=== PATIENT | female | born 1940 | race Caucasian/White ===

== ENCOUNTER → 2016-07-10 | Outpatient (CLI) | payer MEDICARE, OTHER ==
--- NOTE | 2016-07-10 16:52 | US ---
EXAMINATION TYPE: US venous doppler duplex LE BI DATE OF EXAM: 07/10/2016 3:33 PM COMPARISON: NONE CLINICAL HISTORY: R60 Localized Edema. SIDE PERFORMED: Bilateral TECHNIQUE: The lower extremity deep venous system is examined utilizing real time linear array sonog dinah with graded compression, doppler sonography and color-flow sonography. VESSELS IMAGED: External Iliac Vein (EIV) Common Femoral Vein Deep Femoral Vein Greater Saphenous Vein * Femoral Vein Popliteal Vein Proximal Calf Veins (* superficial vessels) small complex fluid collection left pop fossa measuring 4.2 x 1.3 x 1.7. Right Leg: Negative for DVT Left Leg: Negative for DVT IMPRESSION: 1. Bilateral lower extremity negative for deep venous thrombosis. 2. Left popliteal cyst
== END | disposition home or self-care (01) ==
LOC: RADUSWWP 15:01
PROVIDERS: ATTEND Family Medicine
DX: M71.22 Synovial cyst of popliteal space [Baker], left knee (principal); Z88.0 Allergy status to penicillin; Z88.1 Allergy status to other antibiotic agents; Z88.8 Allergy status to other drugs, medicaments and biological substances
CPT/HCPCS: 93970

== ENCOUNTER → 2017-03-14 | Outpatient (CLI) | payer MEDICARE, OTHER ==
--- NOTE | 2017-03-19 10:43 | MM ---
Reason for exam: screening (asymptomatic). Last mammogram was performed 2 years and 2 months ago. History: Patient is postmenopausal. Family history of breast cancer at age 35. Physical Findings: A clinical breast exam by your physician is recommended on an annual basis and results should be correlated with mammographic findings. MG 3D Screening Mammo W/Cad Bilateral CC and MLO view(s) were taken. Prior study comparison: January 03, 2015, mammogram, performed at [facility]. May 27, 2011, mammogram, performed at [facility]. There are scattered fibroglandular densities. There are stable left lower inner quadrant calcifications back to 2014. No suspicious abnormality. No significant changes when compared with prior studies. ASSESSMENT: Benign, BI-RAD 2 RECOMMENDATION: Routine screening mammogram of both breasts in 1 year.
== END | disposition home or self-care (01) ==
LOC: RADMAMWWP 13:40
PROVIDERS: ATTEND Family Medicine
DX: Z12.31 Encounter for screening mammogram for malignant neoplasm of breast (principal); Z78.0 Asymptomatic menopausal state
CPT/HCPCS: 77063; 77067

== ENCOUNTER → 2017-08-14 | Outpatient (CLI) | payer MEDICARE, OTHER ==
--- NOTE | 2017-08-16 10:05 | MR ---
MR kidney with and without contrast HISTORY: Renal mass Correlation to CT chest report 06/26/2017 Multiplanar multisequence imaging obtained through the kidneys Findings: The right kidney shows a T2 hyperintense focus measuring 16 mm at the lower pole, upper sneha e T2 hyperintense focus measuring approximately 4 mm. Lower pole left kidney also shows T2 hyperinten se focus measuring 4 mm. Upper pole focus in the left kidney measures only approximately 7 mm in size and is T2 low intensity, T1 hyperintense. Punctate focus of low signal centrally shows increased signal following contrast ad ministration. No evident washout on delayed imaging postcontrast administration. There is no signific ant additional enhancement following contrast administration. Size of the lesion may limit evaluation . Additional subcentimeter cortical cysts are present within the left kidney which are T2 hyperintens e. Liver shows signal drop on out of phase imaging suggestive of hepatic steatosis. Adrenal glands are n ormal. Spleen is a marked pancreas is normal. Lung bases are clear. Aorta shows normal caliber. Possi ble small hiatal hernia. Degenerative disc changes are present in the visualized spine. IMPRESSION: There are cortical cysts bilaterally within the kidneys, and upper pole cyst may represen t proteinaceous cyst, although there is a questionable punctate focus of enhancement centrally, follo w-up could be performed to assess for stability. Hepatic steatosis.
== END | disposition home or self-care (01) ==
LOC: RADMRIMAIN 14:04
PROVIDERS: ATTEND Family Medicine
DX: N28.1 Cyst of kidney, acquired (principal); K76.0 Fatty (change of) liver, not elsewhere classified
CPT/HCPCS: 82565; 84520; 74183; 36415; A9581

== ENCOUNTER → 2017-12-15 | Outpatient (CLI) | payer MEDICARE, OTHER ==
--- NOTE | 2017-12-16 20:39 | BD ---
EXAMINATION TYPE: Axial Bone Density DATE OF EXAM: 12/15/2017 COMPARISON: NONE CLINICAL HISTORY: 77 YR OLD FEMALE.....ICD-10 CODE: Z78.0 MENOPAUSAL STATE Height: 58.8 Weight: 202 FRAX RISK QUESTIONS: Glucocorticoids (More than 3mos): YES (Ex: prednisone, prednisolone, methylprednisolone, dexamethasone, and hydrocortisone). RISK FACTORS HISTORY OF: Postmenopausal woman: YES, AT 48 YRS OLD Take estrogen and/or progesterone medications: YES, HRT FOR ABOUT 7 YRS Lost more than 2 inches in height since high school: YES MEDICATIONS: Prednisone or other steroids: LUNG INHALERS X3 COPD, FOR ABOUT 8 YRS Thyroid Medications: YES, ARMOR THYROID FOR ABOUT 15 YRS Additional Medications: BP MEDS, PROTONIX, STATINS FOR CHOLESTEROL, VIT D Additional History: COPD, HYPERTENSION EXAM MEASUREMENTS: Bone mineral densitometry was performed using the [employer] System. Bone mineral density as measured about the Lumbar spine is: ----- L1-L4(G/cm2): 1.299 T Score Values are as follows: ----- L1: 1.1 ----- L2: 0.8 ----- L3: 0.9 ----- L4: 1.1 ----- L1-L4: 1.0 Bone mineral density FIRST BONE DENSITY AT [facility] Bone mineral density about the R hip (g/cm2): 0.919 Bone mineral density about the L hip (g/cm2): 0.930 T Score values are as follows: -----R Neck: -1.7 -----L Neck: -1.7 -----R Total: -0.7 -----L Total: -0.6 Bone mineral density FIRST AT [facility] FRAX%s: THERE IS A 18.6% CHANCE FOR A MAJOR OSTEOPOROTIC FX AND A 5.1% FOR HIP FX....PROBABILITY OF FX IN 10 YRS TIME IMPRESSION: Osteopenia (T Score between -2.5 and -1). There is slightly increased risk of fracture and the patient may be considered for treatment. Re-Screen 2-5 years. NOTE: T-SCORE=SD OF THE YOUNG ADULT MEAN.
== END | disposition home or self-care (01) ==
LOC: RADBDWWP 15:25
PROVIDERS: ATTEND Family Medicine
DX: M85.80 Other specified disorders of bone density and structure, unspecified site (principal); Z78.0 Asymptomatic menopausal state
CPT/HCPCS: 77080

== ENCOUNTER 2017-12-28 05:38 | Inpatient (IN) | payer MEDICARE, OTHER ==
[2017-12-28] MEDS ORDERED: SODIUM CHLORIDE 0.9% 500 ML 500 ML IV STA (05:44)
[2017-12-28] MEDS ORDERED: DILTIAZEM DRIP BOLUS FROM BAG 1 MG SOLN IV ONE (05:45)
[2017-12-28] MEDS ORDERED: DILTIAZEM 50 MG in SODIUM CHLORIDE 0.9% 40 ML IV SCH (05:45)
--- NOTE | 2017-12-28 05:53 | ED ---
Arrhythmia/Palpitations HPI - General Chief Complaint: Arrhythmia/Palpitations Stated Complaint: A Fib Time Seen by Provider: 12/28/17 05:44 Source: patient Mode of arrival: wheelchair Limitations: no limitations - History of Present Illness Initial Comments: Yamila is a 77-year-old female with a history of A. fib for which she takes by mouth Lopressor and is on L Diamante. She presents the emergency department today for evaluation of palpitations. Patient reports that she woke between 2 and 3 AM felt that her heart was racing. She checked her pulse at home and noted that it was in the 160s to 170s. At that point she decided to come to the ER for further evaluation. Patient reports that she feels her heart is racing and some tightness in her chest as well as some mild shortness of breath. She denies any chest pain. She denies any recent change in medications. She reports she's been compliant with all of her medications. She's had no recent change in the dose of her thyroid medication. 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 - Related Data Home Medications Medication Instructions Recorded Confirmed Glucosamine-Chondr 500-400Mg 3 tab PO DAILY 07/08/13 01/25/17 Pantoprazole Sodium [Protonix] 40 mg PO BID 07/08/13 01/25/17 Tiotropium Kindred [Spiriva] 1 cap INHALATION RT-DAILY 07/08/13 01/25/17 Budesonide/Formoterol Fumarate 2 puff INHALATION RT-BID 01/03/15 01/25/17 [Symbicort 80-4.5 Mcg Inhaler] Selenium 200 mcg PO DAILY 01/03/15 01/25/17 Thyroid,Pork [Nature-Throid] 65 mg PO QAM 01/03/15 01/25/17 Ascorbic Acid [Vitamin C] 1,000 mg PO DAILY 01/25/17 01/25/17 Beclomethasone Dipropionate [Qvar 2 puff INHALATION RT-BID 01/25/17 01/25/17 40 mcg] Cetirizine HCl [Zyrtec] 10 mg PO HS 01/25/17 01/25/17 Chromium 250mcg 250 mcg PO DAILY 01/25/17 01/25/17 Cinnamon Bark [Cinnamon] 500 mg PO DAILY 01/25/17 01/25/17 Cyanocobalamin (Vitamin B-12) 5,000 mcg PO DAILY 01/25/17 01/25/17 [Vitamin B-12] Fenofibrate Nanocrystallized 145 mg PO HS 01/25/17 01/25/17 [Tricor] Levalbuterol Tartrate [Xopenex Hfa 1 puff INHALATION RT-Q6H PRN 01/25/17 Inhaler] Losartan [Cozaar] 50 mg PO QAM 01/25/17 01/25/17 Pro [place] + D Extra 2,800 mg PO BID 01/25/17 01/25/17 Ubidecarenone [Co Q-10] 100 mg PO DAILY 01/25/17 01/25/17 guaiFENesin [Mucinex] 600 mg PO QAM 01/25/17 01/25/17 Previous Rx's Medication Instructions Recorded Apixaban [Eliquis] 5 mg PO BID #60 tab 01/27/17 Furosemide [Lasix] 20 mg PO DAILY #30 tab 01/27/17 Metoprolol Succinate (ER) [Toprol 25 mg PO DAILY #30 tab.er.24h 01/27/17 XL] Potassium Chloride ER [K-Dur 10] 10 meq PO DAILY #30 tab.er.prt 01/27/17 Allergies Allergy/AdvReac Type Severity Reaction Status Date / Time latex Allergy Unknown Verified 12/28/17 05:44 Penicillins AdvReac Unknown Verified 12/28/17 05:44 Review of Systems ROS Statement: Those systems with pertinent positive or pertinent negative responses have been documented in the HPI. ROS Other: All systems not noted in ROS Statement are negative. Past Medical History Past Medical History: Atrial Fibrillation, Asthma, GERD/Reflux, Hyperlipidemia, Hypertension, Thyroid Disorder Additional Past Medical History / Comment(s): STATES SEASONAL ALLERGIES, History of Any Multi-Drug Resistant Organisms: None Reported Past Surgical History: Heart Catheterization, Tubal Ligation Additional Past Surgical History / Comment(s): OMAR CATARACTS, ABD SX TO REMOVE TUMOR FROM UTERUS Past Anesthesia/Blood Transfusion Reactions: Postoperative Nausea & Vomiting ( PONV) Past Psychological History: No Psychological Hx Reported Smoking Status: Former smoker Past Alcohol Use History: None Reported Past Drug Use History: None Reported - Past Family History Mother Family Medical History: Renal Disease Father Family Medical History: No Reported History Additional Family Medical History / Comment(s): of "old age", in his 80's. No known history General Exam - General Exam Comments Initial Comments: Physical Exam GENERAL: Patient is well-developed and well-nourished. Patient is nontoxic and well- hydrated and is in no distress. HENT: Normocephalic, Atraumatic. EYES: PERRL, EOMI PULMONARY: Unlabored respirations. No audible rales rhonchi or wheezing was noted. CARDIOVASCULAR: Tachycardic, irregularly irregular, warm and well perfused extremities, palpable radial pulses bilaterally ABDOMEN: Soft and nontender with normal bowel sounds. SKIN: Skin is clear with no lesions or rashes and otherwise unremarkable. : Deferred NEUROLOGIC: Patient is alert and oriented x3. Moving all extremities spontaneously MUSCULOSKELETAL: Normal extremities with adequate strength and full range of motion. No lower extremity swelling or edema. No calf tenderness. PSYCHIATRIC: Normal psychiatric evaluation. Limitations: no limitations Limitations: no limitations Course Vital Signs 12/28/17 12/28/17 05:41 06:09 Temperature 97.8 F Pulse Rate 158 H Pulse Rate [ 144 H Client Support Administrator ] Respiratory 18 Rate Blood Pressure 145/114 O2 Sat by Pulse 96 Oximetry EKG Findings - EKG Comments: EKG Findings:: EKG obtained at 5:53 AM, rate is 141, narrow complex tachycardia consistent with A. fib with RVR. There is left axis deviation and a left bundle -branch block. Medical Decision Making - Medical Decision Making The patient was seen and evaluated, history was obtained from the patient and review of medical record for cardiac workup and treatment for A. fib with RVR were ordered immediately Labs and imaging were ordered EKG does confirm A. fib with RVR Labs were reviewed, troponin is not elevated, no significant abnormalities that require intervention at this time Patient's HR improved with IV Cardizem Patient care discussed with Dr. Hill who accepts admission with consult to cardiology. Patient agreeable to plan for admission. - Lab Data Result diagrams: 12/28/17 05:55 12/28/17 05:55 Lab Results 12/28/17 12/28/17 12/28/17 Range/Units 05:55 05:55 05:55 WBC 7.6 (3.8-10.6) k/uL RBC 4.80 (3.80-5.40) m/uL Hgb 14.7 (11.4-16.0) gm/dL Hct 44.5 (34.0-46.0) % MCV 92.6 (80.0-100.0) fL MCH 30.7 (25.0-35.0) pg MCHC 33.1 (31.0-37.0) g/dL RDW 13.1 (11.5-15.5) % Plt Count 227 (150-450) k/uL Neutrophils % 54 % Lymphocytes % 33 % Monocytes % 8 % Eosinophils % 3 % Basophils % 1 % Neutrophils # 4.1 (1.3-7.7) k/uL Lymphocytes # 2.5 (1.0-4.8) k/uL Monocytes # 0.6 (0-1.0) k/uL Eosinophils # 0.2 (0-0.7) k/uL Basophils # 0.1 (0-0.2) k/uL Sodium 140 (137-145) mmol/L Potassium 4.1 (3.5-5.1) mmol/L Chloride 108 H (98-107) mmol/L Carbon Dioxide 23 (22-30) mmol/L Anion Gap 9 mmol/L BUN 24 H (7-17) mg/dL Creatinine 0.91 (0.52-1.04) mg/dL Est GFR (CKD-EPI)AfAm 69 (>60 ml/min/1.73 sqM) Est GFR (CKD-EPI)NonAf 60 (>60 ml/min/1.73 sqM) Glucose 119 H (74-99) mg/dL Calcium 10.3 H (8.4-10.2) mg/dL Magnesium 2.0 (1.6-2.3) mg/dL Total Bilirubin 0.7 (0.2-1.3) mg/dL AST 38 H (14-36) U/L ALT 48 (9-52) U/L Alkaline Phosphatase 47 (38-126) U/L Total Creatine Kinase 122 (30-135) U/L CK-MB (CK-2) 2.5 H (0.0-2.4) ng/mL CK-MB (CK-2) Rel Index 2.0 Troponin I 0.015 (0.000-0.034) ng/mL NT-Pro-B Natriuret Pep pg/mL Total Protein 7.8 (6.3-8.2) g/dL Albumin 4.5 (3.5-5.0) g/dL 12/28/17 Range/Units 05:55 WBC (3.8-10.6) k/uL RBC (3.80-5.40) m/uL Hgb (11.4-16.0) gm/dL Hct (34.0-46.0) % MCV (80.0-100.0) fL MCH (25.0-35.0) pg MCHC (31.0-37.0) g/dL RDW (11.5-15.5) % Plt Count (150-450) k/uL Neutrophils % % Lymphocytes % % Monocytes % % Eosinophils % % Basophils % % Neutrophils # (1.3-7.7) k/uL Lymphocytes # (1.0-4.8) k/uL Monocytes # (0-1.0) k/uL Eosinophils # (0-0.7) k/uL Basophils # (0-0.2) k/uL Sodium (137-145) mmol/L Potassium (3.5-5.1) mmol/L Chloride (98-107) mmol/L Carbon Dioxide (22-30) mmol/L Anion Gap mmol/L BUN (7-17) mg/dL Creatinine (0.52-1.04) mg/dL Est GFR (CKD-EPI)AfAm (>60 ml/min/1.73 sqM) Est GFR (CKD-EPI)NonAf (>60 ml/min/1.73 sqM) Glucose (74-99) mg/dL Calcium (8.4-10.2) mg/dL Magnesium (1.6-2.3) mg/dL Total Bilirubin (0.2-1.3) mg/dL AST (14-36) U/L ALT (9-52) U/L Alkaline Phosphatase (38-126) U/L Total Creatine Kinase (30-135) U/L CK-MB (CK-2) (0.0-2.4) ng/mL CK-MB (CK-2) Rel Index Troponin I (0.000-0.034) ng/mL NT-Pro-B Natriuret Pep 432 pg/mL Total Protein (6.3-8.2) g/dL Albumin (3.5-5.0) g/dL Disposition Clinical Impression: Atrial fibrillation, Atrial fibrillation with rapid ventricular response Disposition: ADMITTED IP TO THIS HOSP Condition: Serious Referrals: Hayden Martinez MD [Primary Care Provider] - 1-2 days
[2017-12-28 06:22] LABS: Basophils # (A) 0.1 k/uL (0-0.2); Basophils % (A) 1 %; Eosinophils # (A) 0.2 k/uL (0-0.7); Eosinophils % (A) 3 %; HCT 44.5 % (34.0-46.0); HGB 14.7 gm/dL (11.4-16.0); Lymphocytes # (A) 2.5 k/uL (1.0-4.8); Lymphocytes % (A) 33 %; MCH 30.7 pg (25.0-35.0); MCHC 33.1 g/dL (31.0-37.0); MCV 92.6 fL (80.0-100.0); Mean Platelet Volume 7.3; Monocytes # (A) 0.6 k/uL (0-1.0); Monocytes % (A) 8 %; Neutrophils # (A) 4.1 k/uL (1.3-7.7); Neutrophils % (A) 54 %; Platelet Count 227 k/uL (150-450); RDW 13.1 % (11.5-15.5); WBC 7.6 k/uL (3.8-10.6)
[2017-12-28 06:43] LABS: Albumin 4.5 g/dL (3.5-5.0); Calcium 10.3 mg/dL (8.4-10.2); Potassium 4.1 mmol/L (3.5-5.1); Total Bilirubin 0.7 mg/dL (0.2-1.3); Total Protein 7.8 g/dL (6.3-8.2)
[2017-12-28] MEDS ORDERED: NALOXONE 0.4 MG/ML 1 ML VIAL IV PRN (07:03)
[2017-12-28 07:06] LABS: Creatine Kinase MB 2.5 ng/mL (0.0-2.4); Troponin I 0.015 ng/mL (0.000-0.034)
--- NOTE | 2017-12-28 07:10 | XR ---
EXAMINATION TYPE: XR chest 1V portable DATE OF EXAM: 12/28/2017 HISTORY: chest pain. REFERENCE: Previous study dated 01/25/2017. FINDINGS: The heart is mildly enlarged. The lungs are clear. Pleural space are clear. IMPRESSION: MILD CARDIOMEGALY.
[2017-12-28 07:17] LABS: INR 1.1 (<1.2); Partial Thromboplastin Time 24.5 sec (22.0-30.0)
[2017-12-28 10:00] LABS: T4, Free (Free Thyroxine) 1.04 ng/dL (0.78-2.19)
[2017-12-28] MEDS ORDERED: THYROID PORK 65 MG PO SCH (13:30)
[2017-12-28] MEDS: APIXABAN 5 MG TAB PO SCH ×2 (14:09→20:56)
[2017-12-28] MEDS: METOPROLOL TARTRATE 25 MG TAB PO SCH ×2 (14:09→20:56)
[2017-12-28] MEDS: CYANOCOBALAMIN 500 MCG TAB PO SCH (14:09)
[2017-12-28] MEDS ORDERED: IPRATROPIUM 0.5 MG/2.5 ML NEBU INHALATION SCH (15:44)
[2017-12-28] MEDS: IPRATROPIUM 0.5 MG/2.5 ML NEBU INHALATION SCH ×2 (15:56→19:47)
[2017-12-28] MEDS: FLUTICASONE 44 MCG INHALER INHALATION SCH (19:54)
[2017-12-28] MEDS ORDERED: SYMBICORT 80-4.5 MCG INHALER INHALATION SCH (20:00)
[2017-12-28] MEDS: FENOFIBRATE 160 MG TAB PO SCH (20:56)
[2017-12-28] MEDS: LORATADINE 10 MG TAB PO SCH (20:56)
[2017-12-29 06:56] LABS: Basophils % (A) 1 %; Eosinophils # (A) 0.1 k/uL (0-0.7); Eosinophils % (A) 3 %; HCT 39.9 % (34.0-46.0); Lymphocytes # (A) 2.3 k/uL (1.0-4.8); Lymphocytes % (A) 47 %; MCH 30.9 pg (25.0-35.0); MCHC 32.7 g/dL (31.0-37.0); MCV 94.5 fL (80.0-100.0); Monocytes # (A) 0.3 k/uL (0-1.0); Monocytes % (A) 6 %; Neutrophils % (A) 41 %; Platelet Count 210 k/uL (150-450); RBC 4.22 m/uL (3.80-5.40); RDW 13.2 % (11.5-15.5); WBC 4.9 k/uL (3.8-10.6)
[2017-12-29 07:06] LABS: Calcium 9.5 mg/dL (8.4-10.2); Potassium 4.1 mmol/L (3.5-5.1)
[2017-12-29] MEDS: FLUTICASONE 44 MCG INHALER INHALATION SCH ×2 (07:56→20:10)
[2017-12-29] MEDS: IPRATROPIUM 0.5 MG/2.5 ML NEBU INHALATION SCH ×4 (07:56→20:10)
[2017-12-29] MEDS ORDERED: IPRATROPIUM 0.5 MG/2.5 ML NEBU INHALATION SCH (08:00)
[2017-12-29] MEDS: CYANOCOBALAMIN 500 MCG TAB PO SCH (08:23)
[2017-12-29] MEDS: METOPROLOL TARTRATE 25 MG TAB PO SCH ×4 (08:23→20:07)
[2017-12-29] MEDS: APIXABAN 5 MG TAB PO SCH ×2 (08:23→20:07)
--- NOTE | 2017-12-29 08:54 | P.CRDCN ---
History of Present Illness Consult date: 12/29/17 Requesting physician: Rose Dominique Consult reason: atrial fibrillation Chief complaint: Palpitations History of present illness: This is a pleasant 77-year-old female with history of hypertension, asthma, paroxysmal atrial fibrillation for which the patient takes Eliquis, hypothyroidism, she presented to the hospital with symptoms of palpitations and feeling her heart racing fast. Patient denies any dizziness or lightheadedness , states that she had some associated tightness in the chest and mild shortness of breath. Overall she states she's been doing well for the past month or so, she is not on any new medications. EKG on arrival here showed atrial fibrillation with a rapid ventricular response, left bundle-branch block pattern. Chest x-ray showed mild cardiomegaly. Blood pressure on arrival here 145/114, heart rate 150s to 160s, 96% on room air. Her blood pressure this morning is 130/60 with a heart rate in the 60s to 70s, she has converted to normal sinus rhythm. White blood cell count 4.9, hemoglobin 13, platelet count 210. Sodium 142, potassium 4.1, BUN 18, creatinine 0.8. Troponin 0.015. TSH level 4.75, free T4 1.04. At the time of my examination this morning, patient feels well, we will obtain an echocardiogram with Doppler study. The patient's home dose of beta rain has been increased to twice a day. Past Medical History Past Medical History: Atrial Fibrillation, Asthma, GERD/Reflux, Hyperlipidemia, Hypertension, Thyroid Disorder Additional Past Medical History / Comment(s): STATES SEASONAL ALLERGIES History of Any Multi-Drug Resistant Organisms: None Reported Past Surgical History: Heart Catheterization, Tubal Ligation Additional Past Surgical History / Comment(s): OMAR CATARACTS, ABD SX TO REMOVE TUMOR FROM UTERUS Past Anesthesia/Blood Transfusion Reactions: Postoperative Nausea & Vomiting ( PONV) Past Psychological History: No Psychological Hx Reported Smoking Status: Former smoker Past Alcohol Use History: None Reported Past Drug Use History: None Reported - Past Family History Mother Family Medical History: Renal Disease Father Family Medical History: No Reported History Additional Family Medical History / Comment(s): of "old age", in his 80's. No known history Medications and Allergies Home Medications Medication Instructions Recorded Confirmed Type Glucosamine-Chondr 500-400Mg 3 tab PO DAILY 07/08/13 12/28/17 History Tiotropium Whately [Spiriva] 1 cap INHALATION RT-DAILY 07/08/13 12/28/17 History Budesonide/Formoterol Fumarate 2 puff INHALATION RT-BID 01/03/15 12/28/17 History [Symbicort 80-4.5 Mcg Inhaler] Selenium 200 mcg PO DAILY 01/03/15 12/28/17 History Thyroid,Pork [Nature-Throid] 65 mg PO QAM 01/03/15 12/28/17 History Ascorbic Acid [Vitamin C] 1,000 mg PO DAILY 01/25/17 12/28/17 History Beclomethasone Dipropionate [Qvar 2 puff INHALATION RT-BID 01/25/17 12/28/17 History 40 mcg] Cetirizine HCl [Zyrtec] 10 mg PO HS 01/25/17 12/28/17 History Chromium 250mcg 250 mcg PO DAILY 01/25/17 12/28/17 History Cinnamon Bark [Cinnamon] 500 mg PO DAILY 01/25/17 12/28/17 History Cyanocobalamin (Vitamin B-12) 5,000 mcg PO DAILY 01/25/17 12/28/17 History [Vitamin B-12] Fenofibrate Nanocrystallized 145 mg PO HS 01/25/17 12/28/17 History [Tricor] Levalbuterol Tartrate [Xopenex Hfa 1 puff INHALATION RT-Q6H PRN 01/25/17 History Inhaler] Losartan [Cozaar] 50 mg PO QAM 01/25/17 12/28/17 History Pro Saline + D Extra 2,800 mg PO BID 01/25/17 12/28/17 History Ubidecarenone [Co Q-10] 100 mg PO DAILY 01/25/17 12/28/17 History guaiFENesin [Mucinex] 600 mg PO BID 01/25/17 12/28/17 History Apixaban [Eliquis] 5 mg PO BID #60 tab 01/27/17 12/28/17 Rx Metoprolol Succinate (ER) [Toprol 25 mg PO DAILY #30 tab.er.24h 01/27/17 Rx XL] Potassium Chloride ER [K-Dur 10] 10 meq PO DAILY #30 tab.er.prt 01/27/17 Rx Bumetanide [BUMEX] 1 mg PO DAILY 12/28/17 12/28/17 History Allergies Allergy/AdvReac Type Severity Reaction Status Date / Time quinine [From Qualaquin] Allergy Unknown Unknown Verified 12/28/17 07:25 latex Allergy Unknown Verified 12/28/17 07:25 Penicillins AdvReac Unknown Verified 12/28/17 07:25 Physical Exam Vitals: Vital Signs Temp Pulse Pulse Resp BP BP Pulse Ox 12/29/17 08:09 76 12/29/17 07:58 72 12/29/17 04:00 98.3 F 61 16 130/62 97 12/28/17 23:36 98.0 F 71 18 126/84 95 12/28/17 20:01 80 12/28/17 20:00 98.4 F 64 18 134/86 96 12/28/17 19:47 78 12/28/17 16:10 76 12/28/17 16:03 74 98 12/28/17 15:43 97.8 F 80 18 140/72 95 12/28/17 15:07 97.4 F L 72 16 140/54 96 12/28/17 13:30 98.1 F 85 16 155/68 98 12/28/17 10:00 120 H 22 99/65 95 12/28/17 09:30 124 H 17 109/87 97 12/28/17 09:00 97.9 F 126 H 18 103/67 97 Intake and Output 12/28/17 12/29/17 12/29/17 22:59 06:59 14:59 Intake Total 480 240 Output Total 0 Balance 480 240 Intake: Oral 480 240 Output: Urine 0 Other: # Voids 2 Weight 92.4 kg PHYSICAL EXAMINATION: GENERAL: 77-year-old female in no acute distress at the time of my examination HEENT: Head is atraumatic, normocephalic. Pupils equal, round. Sclera anicteric. Conjunctiva are clear. Mucous membranes of the mouth are moist. Neck is supple. There is no elevated jugular venous pressure. No carotid bruit is heard. HEART EXAMINATION: Heart S1, S2 normal. No murmur or gallop heard. CHEST EXAMINATION: Lungs reveal fine expiratory wheezing . No chest wall tenderness is noted on palpation or with deep breathing. ABDOMEN: Soft, nontender. Bowel sounds are heard. No organomegaly noted. EXTREMITIES: 2+ peripheral pulses with no evidence of peripheral edema and no calf tenderness noted. NEUROLOGIC patient is awake, alert and oriented ?-3. . Results 12/29/17 06:33 12/29/17 06:33 CBC 12/29/17 Range/Units 06:33 WBC 4.9 (3.8-10.6) k/uL RBC 4.22 (3.80-5.40) m/uL Hgb 13.0 (11.4-16.0) gm/dL Hct 39.9 (34.0-46.0) % Plt Count 210 (150-450) k/uL Comprehensive Metabolic Panel 12/29/17 Range/Units 06:33 Sodium 142 (137-145) mmol/L Potassium 4.1 (3.5-5.1) mmol/L Chloride 110 H (98-107) mmol/L Carbon Dioxide 27 (22-30) mmol/L BUN 18 H (7-17) mg/dL Creatinine 0.80 (0.52-1.04) mg/dL Glucose 98 (74-99) mg/dL Calcium 9.5 (8.4-10.2) mg/dL Current Medications Generic Name Dose Route Start Last Admin Trade Name Tommieq PRN Reason Stop Dose Admin Apixaban 5 mg 12/28/17 13:15 12/29/17 08:23 Eliquis PO 5 mg BID LINNEA Administration Cyanocobalamin 5,000 mcg 12/28/17 13:30 12/29/17 08:23 Vitamin B-12 PO 5,000 mcg DAILY LINNEA Administration Fenofibrate 160 mg 12/28/17 21:00 12/28/17 20:56 Lofibra PO 160 mg HS LINNEA Administration Fluticasone Propionate 2 puff 12/28/17 20:00 12/29/17 07:56 Flovent 44 Mcg Inhaler INHALATION 2 puff RT-BID LINNEA Administration Ipratropium Whately 0.5 mg 12/28/17 16:00 12/29/17 07:56 Atrovent Nebulized INHALATION 0.5 mg RT-QID LINNEA Administration Loratadine 10 mg 12/28/17 21:00 12/28/17 20:56 Claritin PO 10 mg HS LINNEA Administration Losartan Potassium 50 mg 12/29/17 09:00 12/29/17 08:23 Cozaar PO 50 mg QAM LINNEA Administration Metoprolol Tartrate 25 mg 12/28/17 13:15 12/29/17 08:23 Lopressor PO 25 mg BID LINNEA Administration Naloxone HCl 0.2 mg 12/28/17 07:03 Narcan IV Q2M PRN Opioid Reversal Non-Formulary Medication 65 mg 12/28/17 13:30 12/28/17 14:10 Thyroid,Pork [Nature-Throid] PO Not Given QAM LINNEA Intake and Output 12/28/17 12/29/17 12/29/17 22:59 06:59 14:59 Intake Total 480 240 Output Total 0 Balance 480 240 Intake: Oral 480 240 Output: Urine 0 Other: # Voids 2 Weight 92.4 kg 12/29/17 06:33 12/29/17 06:33 EKG Interpretations (text) EKG on arrival showed atrial fibrillation with rapid ventricular response, left bundle-branch block pattern. Subsequent EKG shows a normal sinus rhythm. Assessment and Plan Plan: Assessment and plan #1 atrial fibrillation with rapid ventricular response, paroxysmal, patient currently in normal sinus rhythm. #2 asthma #3 prior history of smoking #4 hypothyroidism #5 hypertension Plan We will obtain an echocardiogram with Doppler study. Continue anticoagulation in the form of Eliquis 5 mg one tablet by mouth twice a day, patient's beta rain dose has been increased to 25 twice a day. Further recommendations to follow. DNP note has been reviewed, I agree with a documented findings and plan of care. Patient was seen and examined.
[2017-12-29] MEDS ORDERED: LOSARTAN 50 MG TAB PO SCH (09:00)
--- NOTE | 2017-12-29 09:28 | P.PN ---
Progress Note - Text Progress Note Date: 12/29/17 This is an addendum to the cardiology consultation dictated. Upon review of prior records, patient did have an echocardiogram with Doppler study performed in 2017 which revealed an ejection fraction moderately to severely impaired 30- 35%. Patient does state that she also had a cardiac catheterization performed at [facility] which she was told to be normal at that time. DNP note has been reviewed, I agree with a documented findings and plan of care. Patient was seen and examined.
--- NOTE | 2017-12-29 10:36 | ECHOF ---
Referral Reason:afib MEASUREMENTS -------- HEIGHT: 152.4 cm WEIGHT: 92.1 kg BP: 130/62 IVSd: 1.0 cm (0.6 - 1.1) LVIDd: 5.5 cm (3.9 - 5.3) LVPWd: 1.2 cm (0.6 - 1.1) IVSs: 1.5 cm LVIDs: 4.6 cm LVPWs: 1.4 cm LAESV Index (A-L): 23.42 ml/m Ao Diam: 3.1 cm (2.0 - 3.7) AV Cusp: 1.8 cm (1.5 - 2.6) LA Diam: 3.8 cm (2.7 - 3.8) MV EXCURSION: 18.048 mm (> 18.000) MV EF SLOPE: 111 mm/s (70 - 150) EPSS: 0.8 cm MV E Teddy: 0.82 m/s MV DecT: 288 ms MV A Teddy: 1.22 m/s MV E/A Ratio: 0.67 AR PHT: 399 ms RAP: 5.00 mmHg RVSP: 14.00 mmHg FINDINGS -------- Sinus rhythm. This was a technically difficult study with suboptimal views. The left ventricle is mildly dilated. There is borderline concentric left ventricular hypertrophy. There is severe global hypokinesis of LV . Overall left ventricular systolic function is severely impaired with, an EF between 20 - 25 %. The right ventricle is normal in size and function. Normal LA size by volume 22+/-6 ml/m2. The right atrium is normal in size. Lumason used The aortic valve is trileaflet, and appears structurally normal. No aortic stenosis or regurgitation. There is mild aortic regurgitation. The mitral valve leaflets are mildly thickened. Mild mitral regurgitation is present. Mild tricuspid regurgitation present. The right ventricular systolic pressure, as measured by Doppl er, is 14.00mmHg. Pulmonic valve appears structurally normal. The aortic root size is normal. The pericardium is normal. CONCLUSIONS -------- 1. Sinus rhythm. 2. This was a technically difficult study with suboptimal views. 3. The left ventricle is mildly dilated. 4. There is borderline concentric left ventricular hypertrophy. 5. There is severe global hypokinesis of LV . 6. Overall left ventricular systolic function is severely impaired with, an EF between 20 - 25 %. 7. The right ventricle is normal in size and function. 8. Normal LA size by volume 22+/-6 ml/m2. 9. The right atrium is normal in size. 10. Lumason used 11. The aortic valve is trileaflet, and appears structurally normal. No aortic stenosis or regurgitat ion. 12. There is mild aortic regurgitation. 13. The mitral valve leaflets are mildly thickened. 14. Mild mitral regurgitation is present. 15. Mild tricuspid regurgitation present. 16. The right ventricular systolic pressure, as measured by Doppler, is 14.00mmHg. 17. Pulmonic valve appears structurally normal. 18. The aortic root size is normal. 19. The pericardium is normal. MAINTENANCE PLANNING CLERK: Ashlie Ferreira RDCS
--- NOTE | 2017-12-29 11:49 | P.HPIM ---
History of Present Illness H&P Date: 12/28/17 77-year-old female with a history of A. fib for which she takes by mouth Lopressor and is on L Diamante. She presents the emergency department today for evaluation of palpitations. Patient reports that she woke between 2 and 3 AM felt that her heart was racing. She checked her pulse at home and noted that it was in the 160s to 170s. At that point she decided to come to the ER for further evaluation. Patient reports that she feels her heart is racing and some tightness in her chest as well as some mild shortness of breath. She denies any chest pain. She denies any recent change in medications. She reports she's been compliant with all of her medications. She's had no recent change in the dose of her thyroid medication. 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 Review of Systems Constitutional: Reports lethargy, Denies chills, Denies fever Eyes: denies blurred vision Ears, nose, mouth and throat: Denies headache Cardiovascular: Reports palpitations, Reports shortness of breath Respiratory: Denies congestion, Denies cough Gastrointestinal: Denies abdominal pain, Denies nausea, Denies vomiting Genitourinary: Denies hematuria, Denies nocturia Musculoskeletal: Denies low back pain, Denies muscle cramps Integumentary: Denies darkening of skin, Denies rash Neurological: Denies double vision, Denies numbness, Denies weakness Psychiatric: Denies confusion Endocrine: Denies cold intolerance, Denies excessive sweating, Denies excessive thirst, Denies heat intolerance Hematologic/Lymphatic: Denies easy bruising, Denies lymphadenopathy Allergic/Immunologic: Denies anaphylaxis Past Medical History Past Medical History: Atrial Fibrillation, Asthma, GERD/Reflux, Hyperlipidemia, Hypertension, Thyroid Disorder Additional Past Medical History / Comment(s): STATES SEASONAL ALLERGIES, History of Any Multi-Drug Resistant Organisms: None Reported Past Surgical History: Heart Catheterization, Tubal Ligation Additional Past Surgical History / Comment(s): OMAR CATARACTS, ABD SX TO REMOVE TUMOR FROM UTERUS Past Anesthesia/Blood Transfusion Reactions: Postoperative Nausea & Vomiting ( PONV) Past Psychological History: No Psychological Hx Reported Smoking Status: Former smoker Past Alcohol Use History: None Reported Past Drug Use History: None Reported - Past Family History Mother Family Medical History: Renal Disease Father Family Medical History: No Reported History Additional Family Medical History / Comment(s): of "old age", in his 80's. No known history Medications and Allergies Home Medications Medication Instructions Recorded Confirmed Type Glucosamine-Chondr 500-400Mg 3 tab PO DAILY 07/08/13 12/28/17 History Tiotropium [place] [Spiriva] 1 cap INHALATION RT-DAILY 07/08/13 12/28/17 History Budesonide/Formoterol Fumarate 2 puff INHALATION RT-BID 01/03/15 12/28/17 History [Symbicort 80-4.5 Mcg Inhaler] Selenium 200 mcg PO DAILY 01/03/15 12/28/17 History Thyroid,Pork [Nature-Throid] 65 mg PO QAM 01/03/15 12/28/17 History Ascorbic Acid [Vitamin C] 1,000 mg PO DAILY 01/25/17 12/28/17 History Beclomethasone Dipropionate [Qvar 2 puff INHALATION RT-BID 01/25/17 12/28/17 History 40 mcg] Cetirizine HCl [Zyrtec] 10 mg PO HS 01/25/17 12/28/17 History Chromium 250mcg 250 mcg PO DAILY 01/25/17 12/28/17 History Cinnamon Bark [Cinnamon] 500 mg PO DAILY 01/25/17 12/28/17 History Cyanocobalamin (Vitamin B-12) 5,000 mcg PO DAILY 01/25/17 12/28/17 History [Vitamin B-12] Fenofibrate Nanocrystallized 145 mg PO HS 01/25/17 12/28/17 History [Tricor] Levalbuterol Tartrate [Xopenex Hfa 1 puff INHALATION RT-Q6H PRN 01/25/17 History Inhaler] Losartan [Cozaar] 50 mg PO QAM 01/25/17 12/28/17 History Pro [place] + D Extra 2,800 mg PO BID 01/25/17 12/28/17 History Ubidecarenone [Co Q-10] 100 mg PO DAILY 01/25/17 12/28/17 History guaiFENesin [Mucinex] 600 mg PO BID 01/25/17 12/28/17 History Apixaban [Eliquis] 5 mg PO BID #60 tab 01/27/17 12/28/17 Rx Metoprolol Succinate (ER) [Toprol 25 mg PO DAILY #30 tab.er.24h 01/27/17 Rx XL] Potassium Chloride ER [K-Dur 10] 10 meq PO DAILY #30 tab.er.prt 01/27/17 Rx Bumetanide [BUMEX] 1 mg PO DAILY 12/28/17 12/28/17 History Allergies Allergy/AdvReac Type Severity Reaction Status Date / Time quinine [From [facility]] Allergy Unknown Unknown Verified 12/28/17 07:25 latex Allergy Unknown Verified 12/28/17 07:25 Penicillins AdvReac Unknown Verified 12/28/17 07:25 Physical Exam Vitals: Vital Signs Temp Pulse Pulse Resp BP Pulse Ox 12/28/17 10:00 120 H 22 99/65 95 12/28/17 09:30 124 H 17 109/87 97 12/28/17 09:00 97.9 F 126 H 18 103/67 97 12/28/17 08:30 126 H 18 132/71 95 12/28/17 08:00 123 H 18 122/93 95 12/28/17 07:20 126 H 10 L 93/58 94 L 12/28/17 07:10 133 H 21 93/58 92 L 12/28/17 07:00 118 H 19 129/105 92 L 12/28/17 06:50 138 H 24 129/105 94 L 12/28/17 06:40 129 H 25 H 129/105 92 L 12/28/17 06:30 133 H 23 121/99 93 L 12/28/17 06:20 138 H 20 121/99 95 12/28/17 06:10 124 H 16 121/99 96 12/28/17 06:09 144 H 12/28/17 06:00 6 L 149/100 97 12/28/17 05:41 97.8 F 158 H 18 145/114 96 Intake and Output 12/27/17 12/28/17 12/28/17 22:59 06:59 14:59 Intake Total 10.667 Balance 10.667 Intake: Intake, IV Titration 10.667 Amount Diltiazem 50 mg In Sodium 10.667 Chloride 0.9% 40 ml @ Per Protocol IV .Q0M [facility] Rx#:[id number] Other: Weight 90.718 kg - Constitutional General appearance: Present: average body habitus, cooperative, no acute distress - EENT Eyes: Present: anicteric sclerae, EOMI, PERRLA, normal appearance ENT: Present: hearing grossly normal, normal oropharynx Ears: bilateral: normal - Neck Neck: Present: normal ROM. Absent: lymphadenopathy, rigidity, thyromegaly Carotids: negative: bruit present Thyroid: bilateral: normal size, negative: enlarged, nodule - Respiratory Respiratory: bilateral: CTA, negative: rales, rhonchi, wheezing - Cardiovascular Rhythm: regular Heart sounds: normal: S1, S2 Abnormal Heart Sounds: Absent: systolic murmur, diastolic murmur - Gastrointestinal General gastrointestinal: Present: normal bowel sounds, soft. Absent: distended , organomegaly, tenderness - Genitourinary Genitourinary Comment(s): deferred - Integumentary Integumentary: Present: normal turgor. Absent: jaundiced, rash, ulcer - Neurologic Neurologic: Present: CNII-XII intact. Absent: focal deficits - Musculoskeletal Musculoskeletal: Present: gait normal, strength equal bilaterally - Psychiatric Psychiatric: Present: A&O x's 3, appropriate affect, intact judgment & insight Results CBC & Chem 7: 12/28/17 05:55 12/28/17 05:55 Labs: Abnormal Lab Results - Last 24 Hours (Table) 12/28/17 12/28/17 Range/Units 05:55 05:55 Chloride 108 H (98-107) mmol/L BUN 24 H (7-17) mg/dL Glucose 119 H (74-99) mg/dL Calcium 10.3 H (8.4-10.2) mg/dL AST 38 H (14-36) U/L CK-MB (CK-2) 2.5 H (0.0-2.4) ng/mL TSH 4.750 H (0.465-4.680) mIU/L Assessment and Plan Assessment: 1. Atrial fibrillation with RVR - We will admit the patient to cardiac telemetry unit - We will monitor EKG and trend troponin - Patient is started on IV Cardizem drip in ED; we will continue same - Resume home dose of metoprolol 25 mg twice a day - Cardiology consult; recommendations are pending; we appreciate their expertise and help in management of this patient 2. Mild acute renal injury - Patient was given a liter of IV fluids normal saline in ED - We will repeat BUN, creatinine and electrolytes and restart IV fluids if renal function remains abnormal - We will hold home dose of Bumex for next 24 hours; restart when renal function is back to baseline 3. Uncontrolled hypertension - Blood pressure is currently controlled on oral beta blockers and IV Cardizem drip - We will monitor blood pressure closely while in hospital and make adjustments prior to discharge 4. Hyperlipidemia; continue with TriCor 145 mg by mouth daily at bedtime 5. Hypothyroidism; continue with home dose of thyroid supplement - We will order TSH and free T4 levels 6. DVT prophylaxis; systemic anticoagulation with Eliquis CODE STATUS; full code
--- NOTE | 2017-12-29 12:54 | P.PN ---
Subjective Patient resting in bed without complaint EKG shows sinus rhythm at this time Objective - Vital Signs Vital signs: Vital Signs Temp 98.2 F 12/29/17 08:00 Pulse 68 12/29/17 12:00 Resp 16 12/29/17 12:00 BP 142/64 12/29/17 12:00 Pulse Ox 95 12/29/17 12:00 Intake & Output 12/28/17 12/29/17 12/29/17 18:59 06:59 18:59 Intake Total 10.667 480 240 Output Total 0 Balance 10.667 480 240 Weight 92.4 kg Intake: Intake, IV Titration 10.667 Amount Diltiazem 50 mg In Sodium 10.667 Chloride 0.9% 40 ml @ Per Protocol IV .Q0M [facility] Rx#:[id number] Oral 480 240 Output: Urine 0 Other: # Voids 2 - Constitutional General appearance: Present: obese - EENT Eyes: Present: PERRLA Ears: bilateral: normal - Neck Neck: Present: normal ROM - Respiratory Respiratory: bilateral: diminished - Cardiovascular Rhythm: regular - Gastrointestinal General gastrointestinal: Present: soft - Integumentary Integumentary: Present: normal - Neurologic Neurologic: Present: CNII-XII intact - Psychiatric Psychiatric: Present: A&O x's 3, appropriate affect, intact judgment & insight - Labs CBC & Chem 7: 12/29/17 06:33 12/29/17 06:33 Labs: Abnormal Lab Results - Last 24 Hours (Table) 12/29/17 Range/Units 06:33 Chloride 110 H (98-107) mmol/L BUN 18 H (7-17) mg/dL - Imaging and Cardiology Chest x-ray: report reviewed Assessment and Plan Plan: Assessment Atrial fibrillation with RVR paroxysmal rate 150-160 Patient is converted to sinus rhythm History of asthma with remote history of smoking Hypothyroidism Hypertension Congestive heart failure systolic ejection fraction 20-25% GERD Plan Continue consultation with cardiology
[2017-12-29] MEDS ORDERED: PANTOPRAZOLE 40 MG TABLET PO STA (13:00)
[2017-12-29] MEDS: LORATADINE 10 MG TAB PO SCH (20:07)
[2017-12-29] MEDS: FENOFIBRATE 160 MG TAB PO SCH (20:07)
[2017-12-30] MEDS: METOPROLOL TARTRATE 25 MG TAB PO SCH ×3 (08:50→20:10)
[2017-12-30] MEDS: APIXABAN 5 MG TAB PO SCH ×2 (08:50→20:10)
[2017-12-30] MEDS: CYANOCOBALAMIN 500 MCG TAB PO SCH (08:51)
[2017-12-30] MEDS: IPRATROPIUM 0.5 MG/2.5 ML NEBU INHALATION SCH ×4 (08:57→19:21)
[2017-12-30] MEDS: FLUTICASONE 44 MCG INHALER INHALATION SCH ×2 (09:02→19:21)
--- NOTE | 2017-12-30 11:32 | CDI ---
Last Revision, January 2017 Documentation Clarification Form Date: 12/30/2017 11:22:28 AM From: Mary WillisKEENAN, CCDS Admit Date: 12/28/2017 7:03:00 AM Patient Name: Yamila Pete Visit Number: [id number] Discharge Date: ATTENTION: The Clinical Documentation Specialists (CDI) and [facility] Coding Staff appreciate your assistance in clarifying documentation. Please respond to the clarification below the line at the bottom and electronically sign. The CDI & [facility] Coding staff will review the response and follow-up if needed. Please note: Queries are made part of the Legal Health Record. If you have any questions, please contact the author of this message via ITS. Hayden Maciel MD: Asthma is documented in the ED note, the H/P, the cardiology consult and subsequent progress notes as a history of asthma. Patient history/risk factors: Atrial Fibrillation, Hypertensive systolic heart disease, GERD, Hypothyroidism, Hyperlipidemia & is a former smoker. Clinical Indicators: Presented to the ED with heart palpitations, chest tightness, mild SOB. Radiology: CXR: Mild cardiomegaly. Vital Signs: P 158^, R 18 - 6*, BP 145/114^, PO 96 RA Other Clinical Indicators: Patient's home meds include: Mucinex, Spiriva INH, Xopenex INH, Symbicort INH, Qvar INH & Eliquis Treatment: IV fluid bolus, IV Cardizem drip, IV Narcan, Home INH txs and continued home Lopressor & Eliquis. In your professional opinion, please further specify the patient's diagnosis of asthma, if known? Acute Exacerbation Status asthmaticus Other, please specify Unable to determine Severity: o Mild intermittent o Mild persistent o Moderate persistent o Severe persistent o Other, please specify o Unable to determine Form or Type: o Cough variant o Childhood o Exercise induced bronchospasm o Extrinsic allergic o Idiosyncratic o Intrinsic nonallergic o Late-onset o Mixed o Other, please specify o Unable to determine MTDD
--- NOTE | 2017-12-30 12:08 | P.PN ---
Subjective Patient sitting up in bed without complaint continues to be in a sinus rhythm. Discussed with cardiology possible discharge today Objective - Vital Signs Vital signs: Vital Signs Temp 98.4 F 12/30/17 08:00 Pulse 72 12/30/17 09:09 Resp 16 12/30/17 11:17 BP 138/79 12/30/17 08:00 Pulse Ox 96 12/30/17 08:00 Intake & Output 12/29/17 12/30/17 12/30/17 18:59 06:59 18:59 Intake Total 720 240 400 Output Total 0 Balance 720 240 400 Weight 92.8 kg Intake: Oral 720 240 400 Output: Urine 0 Other: # Voids 2 - Constitutional General appearance: Present: obese - EENT Eyes: Present: PERRLA Ears: bilateral: normal - Neck Neck: Present: normal ROM - Respiratory Respiratory: negative: CTA - Cardiovascular Rhythm: regular - Gastrointestinal General gastrointestinal: Present: soft - Integumentary Integumentary: Present: normal - Neurologic Neurologic: Present: CNII-XII intact - Psychiatric Psychiatric: Present: A&O x's 3, appropriate affect, intact judgment & insight - Labs CBC & Chem 7: 12/29/17 06:33 12/29/17 06:33 Assessment and Plan Plan: Assessment Paroxysmal atrial fibrillation with RVR rate 150-160 patient on Eliqus Converted to sinus rhythm History of asthma stable Remote history of smoking Hypothyroidism Hyper tension Congestive heart failure systolic ejection fraction 20/25% GERD Plan Continue consultation with cardiology hopeful discharge today
--- NOTE | 2017-12-30 12:12 | P.DS ---
Providers Date of admission: 12/28/17 07:03 Attending physician: Hayden Martinez Consults: 12/28/17 07:07 Consult Physician Urgent Consulting Provider: [facility] Consult Reason/Comments: rvr Do you want consulting provider notified?: Yes, Notify in am Primary care physician: Hayden Martinez [facility] Course: 77-year-old female was admitted through the emergency room with complaints of palpitations dizziness racing heart rate. On arrival wishing to be in atrial fibrillation with RVR left bundle branch block rate 150-160. Patient had echo showing a ejection fraction of 20-25%. Patient's medication adjusted beta rain increased to 25 mg twice a day patient has resumed a sinus rhythm Assessment Paroxysmal atrial fibrillation with RVR rate 150-160 patient in normal sinus rhythm at this time History of asthma stable Remote history of smoking Hypothyroidism Hypertension Congestive heart failure systolic ejection fraction 20-25% GERD Plan 1 cleared by cardiology patient will be discharged home with medication adjustment metoprolol 25 mg to twice a day Patient Condition at Discharge: Serious Plan - Discharge Summary New Discharge Prescriptions: No Action Tiotropium [place] [Spiriva] 1 cap INHALATION RT-DAILY Glucosamine-Chondr 500-400Mg 3 tab PO DAILY Selenium 200 mcg PO DAILY Budesonide/Formoterol Fumarate [Symbicort 80-4.5 Mcg Inhaler] 2 puff INHALATION RT-BID Thyroid,Pork [Nature-Throid] 65 mg PO QAM Losartan [Cozaar] 50 mg PO QAM Ubidecarenone [Co Q-10] 100 mg PO DAILY Fenofibrate Nanocrystallized [Tricor] 145 mg PO HS Cinnamon Bark [Cinnamon] 500 mg PO DAILY Ascorbic Acid [Vitamin C] 1,000 mg PO DAILY Beclomethasone Dipropionate [Qvar 40 mcg] 2 puff INHALATION RT-BID guaiFENesin [Mucinex] 600 mg PO BID Levalbuterol Tartrate [Xopenex Hfa Inhaler] 1 puff INHALATION RT-Q6H PRN PRN Reason: Shortness Of Breath Cyanocobalamin (Vitamin B-12) [Vitamin B-12] 5,000 mcg PO DAILY Cetirizine HCl [Zyrtec] 10 mg PO HS Chromium 250mcg 250 mcg PO DAILY Pro [place] + D Extra 2,800 mg PO BID Apixaban [Eliquis] 5 mg PO BID #60 tab Metoprolol Succinate (ER) [Toprol XL] 25 mg PO DAILY #30 tab.er.24h Potassium Chloride ER [K-Dur 10] 10 meq PO DAILY #30 tab.er.prt Bumetanide [BUMEX] 1 mg PO DAILY Discharge Medication List Glucosamine-Chondr 500-400Mg 3 tab PO DAILY 07/08/13 [History] Tiotropium [place] [Spiriva] 1 cap INHALATION RT-DAILY 07/08/13 [History] Budesonide/Formoterol Fumarate [Symbicort 80-4.5 Mcg Inhaler] 2 puff INHALATION RT-BID 01/03/15 [History] Selenium 200 mcg PO DAILY 01/03/15 [History] Thyroid,Pork [Nature-Throid] 65 mg PO QAM 01/03/15 [History] Ascorbic Acid [Vitamin C] 1,000 mg PO DAILY 01/25/17 [History] Beclomethasone Dipropionate [Qvar 40 mcg] 2 puff INHALATION RT-BID 01/25/17 [ History] Cetirizine HCl [Zyrtec] 10 mg PO HS 01/25/17 [History] Chromium 250mcg 250 mcg PO DAILY 01/25/17 [History] Cinnamon Bark [Cinnamon] 500 mg PO DAILY 01/25/17 [History] Cyanocobalamin (Vitamin B-12) [Vitamin B-12] 5,000 mcg PO DAILY 01/25/17 [ History] Fenofibrate Nanocrystallized [Tricor] 145 mg PO HS 01/25/17 [History] Levalbuterol Tartrate [Xopenex Hfa Inhaler] 1 puff INHALATION RT-Q6H PRN [History] Losartan [Cozaar] 50 mg PO QAM 01/25/17 [History] Pro [place] + D Extra 2,800 mg PO BID 01/25/17 [History] Ubidecarenone [Co Q-10] 100 mg PO DAILY 01/25/17 [History] guaiFENesin [Mucinex] 600 mg PO BID 01/25/17 [History] Apixaban [Eliquis] 5 mg PO BID #60 tab 01/27/17 [Rx] Metoprolol Succinate (ER) [Toprol XL] 25 mg PO DAILY #30 tab.er.24h 01/27/17 [Rx ] Potassium Chloride ER [K-Dur 10] 10 meq PO DAILY #30 tab.er.prt 01/27/17 [Rx] Bumetanide [BUMEX] 1 mg PO DAILY 12/28/17 [History] Follow up Appointment(s)/Referral(s): Hayden Martinez MD [Primary Care Provider] - 01/05/18 1:20 pm (With Mary MARQUES.) Arron Garcia MD [STAFF PHYSICIAN] - 01/08/18 2:30 pm
--- NOTE | 2017-12-30 15:20 | P.PN ---
Subjective Progress Note Date: 12/30/17 This is a pleasant 77-year-old female with history of hypertension, asthma, paroxysmal atrial fibrillation for which the patient takes Eliquis, hypothyroidism, she presented to the hospital with symptoms of palpitations and feeling her heart racing fast. Patient denies any dizziness or lightheadedness , states that she had some associated tightness in the chest and mild shortness of breath. Overall she states she's been doing well for the past month or so, she is not on any new medications. EKG on arrival here showed atrial fibrillation with a rapid ventricular response, left bundle-branch block pattern. Chest x-ray showed mild cardiomegaly. Blood pressure on arrival here 145/114, heart rate 150s to 160s, 96% on room air. Her blood pressure this morning is 130/60 with a heart rate in the 60s to 70s, she has converted to normal sinus rhythm. White blood cell count 4.9, hemoglobin 13, platelet count 210. Sodium 142, potassium 4.1, BUN 18, creatinine 0.8. Troponin 0.015. TSH level 4.75, free T4 1.04. At the time of my examination this morning, patient feels well, we will obtain an echocardiogram with Doppler study. The patient's home dose of beta rain has been increased to twice a day. Patient did have an echocardiogram with Doppler study performed in 2016 which revealed an ejection fraction moderately to severely impaired 30-35%. Patient does state that she also had a cardiac catheterization performed at [facility] which she was told to be normal at that time. 12/30/2017 Echocardiogram with Doppler study was performed which revealed an ejection fraction of 20-25%. Patient was seen and examined this morning, feels well, denies any palpitations, continues to be in atrial fibrillation, her rate is under adequate control. Blood pressure 144/60, 93% on room air. White blood cell count 4.9, hemoglobin 13, platelet count 210. Sodium 142, potassium 4.1, BUN 18, and creatinine 0.8. We will continue the patient on Eliquis 5 mg one tablet by mouth twice a day, metoprolol 25 mg one tablet 3 times a day, she will also start entresto from tomorrow. She may be able to be discharged home, follow-up appointment in the office post discharge. Objective - Vital Signs Vital signs: Vital Signs Temp 98.4 F 12/30/17 08:00 Pulse 69 12/30/17 12:24 Resp 16 12/30/17 12:00 BP 145/66 12/30/17 12:00 Pulse Ox 93 L 12/30/17 12:00 Intake & Output 12/29/17 12/30/17 12/30/17 18:59 06:59 18:59 Intake Total 720 240 640 Output Total 0 Balance 720 240 640 Weight 92.8 kg Intake: Oral 720 240 640 Output: Urine 0 Other: # Voids 2 - Exam PHYSICAL EXAMINATION: GENERAL: 77-year-old female in no acute distress at the time of my examination HEENT: Head is atraumatic, normocephalic. Pupils equal, round. Sclera anicteric. Conjunctiva are clear. Mucous membranes of the mouth are moist. Neck is supple. There is no elevated jugular venous pressure. No carotid bruit is heard. HEART EXAMINATION: Heart S1, S2 normal. No murmur or gallop heard. CHEST EXAMINATION: Lungs reveal fine expiratory wheezing . No chest wall tenderness is noted on palpation or with deep breathing. ABDOMEN: Soft, nontender. Bowel sounds are heard. No organomegaly noted. EXTREMITIES: 2+ peripheral pulses with no evidence of peripheral edema and no calf tenderness noted. NEUROLOGIC patient is awake, alert and oriented ?-3. - Labs CBC & Chem 7: 12/29/17 06:33 12/29/17 06:33 Assessment and Plan Plan: Assessment and plan #1 atrial fibrillation with rapid ventricular response, paroxysmal, patient currently in normal sinus rhythm. #2 asthma #3 prior history of smoking #4 hypothyroidism #5 hypertension #6 nonischemic cardiomyopathy Plan Continue anticoagulation in the form of Eliquis 5 mg one tablet by mouth twice a day, patient's beta rain dose has been increased to 25 3 times a day . We will initiate interest oh from tomorrow. She may be able to be discharged home from our perspective, follow-up appointment will be made in the office post discharge. DNP note has been reviewed, I agree with a documented findings and plan of care. Patient was seen and examined.
[2017-12-30] MEDS: FENOFIBRATE 160 MG TAB PO SCH (20:10)
[2017-12-30] MEDS: LORATADINE 10 MG TAB PO SCH (20:10)
[2017-12-31] MEDS ORDERED: SACUBITRIL/VALSARTAN 24 MG-26 MG TABLET PO SCH (08:00)
[2017-12-31] MEDS: FLUTICASONE 44 MCG INHALER INHALATION SCH (08:00)
[2017-12-31] MEDS: IPRATROPIUM 0.5 MG/2.5 ML NEBU INHALATION SCH ×3 (08:00→15:38)
--- NOTE | 2017-12-31 09:40 | CDI ---
Last Revision, January 2017 Documentation Clarification Form Date: 12/30/2017 11:22:00 AM From: Mary WillisKEENAN, CCDS Admit Date: 12/28/2017 7:03:00 AM Patient Name: Yamila Pete Visit Number: [id number] Discharge Date: ATTENTION: The Clinical Documentation Specialists (CDI) and [facility] Coding Staff appreciate your assistance in clarifying documentation. Please respond to the clarification below the line at the bottom and electronically sign. The CDI & [facility] Coding staff will review the response and follow-up if needed. Please note: Queries are made part of the Legal Health Record. If you have any questions, please contact the author of this message via ITS. Hayden Zendejas MD: Asthma is documented in the ED note, the H/P, the cardiology consult and subsequent progress notes as a history of asthma. Patient history/risk factors: Atrial Fibrillation, Hypertensive systolic heart disease, GERD, Hypothyroidism, Hyperlipidemia & is a former smoker. Clinical Indicators: Presented to the ED with heart palpitations, chest tightness & some mild SOB. Radiology: CXR: Mild cardiomegaly. Vital Signs: P 158^, R 18 - 6*, BP 145/114^, PO 96 RA Other Clinical Indicators: Patient's home meds include: Mucinex, Spiriva INH, Xopenex INH, Symbicort INH, Qvar INH & Eliquis Treatment: IV fluid bolus, IV Cardizem drip, IV Narcan, Home INH txs and continued home Lopressor & Eliquis. In your professional opinion, please further specify the patient's diagnosis of asthma, if known? With or Without Acute Exacerbation Other, please specify Unable to determine Severity: Mild intermittent Mild persistent Moderate persistent Severe persistent Other, please specify Unable to determine Form or Type: Cough variant Childhood Exercise induced bronchospasm Extrinsic allergic Idiosyncratic Intrinsic nonallergic Late-onset Mixed Other, please specify Unable to determine MTDD
[2017-12-31 11:59] VITALS: TEMP 98
[2017-12-31] MEDS: CYANOCOBALAMIN 500 MCG TAB PO SCH (12:16)
[2017-12-31] MEDS: METOPROLOL TARTRATE 25 MG TAB PO SCH (12:17)
[2017-12-31] MEDS: APIXABAN 5 MG TAB PO SCH (12:17)
--- NOTE | 2017-12-31 12:38 | P.PN ---
Subjective Progress Note Date: 12/31/17 This is a pleasant 77-year-old female with history of hypertension, asthma, paroxysmal atrial fibrillation for which the patient takes Eliquis, hypothyroidism, she presented to the hospital with symptoms of palpitations and feeling her heart racing fast. Patient denies any dizziness or lightheadedness , states that she had some associated tightness in the chest and mild shortness of breath. Overall she states she's been doing well for the past month or so, she is not on any new medications. EKG on arrival here showed atrial fibrillation with a rapid ventricular response, left bundle-branch block pattern. Chest x-ray showed mild cardiomegaly. Blood pressure on arrival here 145/114, heart rate 150s to 160s, 96% on room air. Her blood pressure this morning is 130/60 with a heart rate in the 60s to 70s, she has converted to normal sinus rhythm. White blood cell count 4.9, hemoglobin 13, platelet count 210. Sodium 142, potassium 4.1, BUN 18, creatinine 0.8. Troponin 0.015. TSH level 4.75, free T4 1.04. At the time of my examination this morning, patient feels well, we will obtain an echocardiogram with Doppler study. The patient's home dose of beta rain has been increased to twice a day. Patient did have an echocardiogram with Doppler study performed in 2016 which revealed an ejection fraction moderately to severely impaired 30-35%. Patient does state that she also had a cardiac catheterization performed at [facility] which she was told to be normal at that time. 12/30/2017 Echocardiogram with Doppler study was performed which revealed an ejection fraction of 20-25%. Patient was seen and examined this morning, feels well, denies any palpitations, continues to be in atrial fibrillation, her rate is under adequate control. Blood pressure 144/60, 93% on room air. White blood cell count 4.9, hemoglobin 13, platelet count 210. Sodium 142, potassium 4.1, BUN 18, and creatinine 0.8. We will continue the patient on Eliquis 5 mg one tablet by mouth twice a day, metoprolol 25 mg one tablet 3 times a day, she will also start entresto from tomorrow. She may be able to be discharged home, follow-up appointment in the office post discharge. 12/31/2017 Patient seen and examined this morning, hemodynamically stable, continues to be in A. fib, heart rate under adequate control. She has been initiated today on Entresto. She will be discharged home today, we'll make her a follow-up appointment in the office. Objective - Vital Signs Vital signs: Vital Signs Temp 98 F 12/31/17 09:55 Pulse 76 12/31/17 11:33 Resp 17 12/31/17 09:55 BP 127/71 12/31/17 09:55 Pulse Ox 98 12/31/17 09:55 Intake & Output 12/30/17 12/31/17 12/31/17 18:59 06:59 18:59 Intake Total 880 360 Output Total 300 Balance 580 360 Intake: Oral 880 360 Output: Urine 300 Other: # Voids 3 3 - Exam PHYSICAL EXAMINATION: GENERAL: 77-year-old female in no acute distress at the time of my examination HEENT: Head is atraumatic, normocephalic. Pupils equal, round. Sclera anicteric. Conjunctiva are clear. Mucous membranes of the mouth are moist. Neck is supple. There is no elevated jugular venous pressure. No carotid bruit is heard. HEART EXAMINATION: Heart S1, S2 normal. No murmur or gallop heard. CHEST EXAMINATION: Lungs reveal fine expiratory wheezing . No chest wall tenderness is noted on palpation or with deep breathing. ABDOMEN: Soft, nontender. Bowel sounds are heard. No organomegaly noted. EXTREMITIES: 2+ peripheral pulses with no evidence of peripheral edema and no calf tenderness noted. NEUROLOGIC patient is awake, alert and oriented ?-3. - Labs CBC & Chem 7: 12/29/17 06:33 12/29/17 06:33 Assessment and Plan Plan: Assessment and plan #1 atrial fibrillation with rapid ventricular response, paroxysmal, patient currently in normal sinus rhythm. #2 asthma #3 prior history of smoking #4 hypothyroidism #5 hypertension #6 nonischemic cardiomyopathy Plan Continue anticoagulation in the form of Eliquis 5 mg one tablet by mouth twice a day, patient's beta rain dose has been increased to 25 3 times a day . She may be able to be discharged home from our perspective, follow-up appointment will be made in the office post discharge. DNP note has been reviewed, I agree with a documented findings and plan of care. Patient was seen and examined.
[2017-12-31 18:30] VITALS: BP 129/71; PULSE 68; RESP 17
[2018-01-01] MEDS ORDERED: THYROID, PORK 30 MG TAB PO SCH (09:00)
--- NOTE | 2018-01-01 09:39 | DS ---
DISCHARGE SUMMARY DATE OF SERVICE: 12/31/2017 FINAL DIAGNOSES: 1. Paroxysmal atrial fibrillation with rapid ventricular rate. 2. History of asthma. 3. History of remote nicotine dependence. 4. Hypothyroidism. 5. Hypertension. 6. History of congestive heart failure with chronic systolic dysfunction, ejection fraction 20-25%. 7. GERD. Patient discharged in stable condition with guarded prognosis. HISTORY OF PRESENT ILLNESS: This 77-year-old woman with a past medical history of multiple medical problems being for Dr. Hayden Martinez in the outpatient setting, was admitted with atrial fibrillation with fast ventricular rate. The patient was treated symptomatically. Cardiology seen the patient. The patient improved significantly. The patient will be discharged in stable condition with guarded prognosis. On exam, vital stable. Cardiovascular: S1, S2. Abdomen soft. Nervous system: No focal deficits. DIET: Cardiac diet. ACTIVITY: Limited until follow up. FOLLOWUP: Follow up with Dr. Hayden Martinez in 2-3 days. Follow with Cardiology as recommended. MEDICATIONS: 1. Vitamin C 1000 mg p.o. daily. 2. Qvar 40 mg b.i.d. 3. Symbicort 4.5 two puffs b.i.d. 4. Bumex 1 mg b.i.d. 5.zyretic 10 mg q.h.s. 6. Chromium 250. 7. Cinnamon 500 mcg. 8. B12 5000 mcg. 9. Tricor 140 mg q.h.s.. 10.Glucosamine 500 p.o. 3 tabs daily. 11.Mucinex 6 mg p.o. t.i.d. 12.Xopenex 1 puff q.6h p.r.n. 13.Vitamin D2 0.8 b.i.d. 14.Saline 200 mcg p.o. daily. 15.Thyroid 65 q.a.m. 16.Spiriva 1 puff daily. 17.Coenzyme Q 100 mg p.o. daily. 18.Eliquis 5 mg p.o. b.i.d. 19.Lopressor 20 mg t.i.d. 20.K-Dur 20 mg p.o. daily. 21.Crestor 25/26 1 p.o. b.i.d. The patient discharged in stable condition with guarded prognosis. MMODL / IJN: [id number] / [facility]
== END 2017-12-31 17:28 | disposition home or self-care (01) | DRG 309 ==
LOC: EC 05:38 → 3SCARD 07:03
PROVIDERS: ADMIT Family Medicine; ATTEND Family Medicine
DX: I48.0 Paroxysmal atrial fibrillation (principal); I50.22 Chronic systolic (congestive) heart failure; N17.9 Acute kidney failure, unspecified; E03.9 Hypothyroidism, unspecified; E78.5 Hyperlipidemia, unspecified; I11.0 Hypertensive heart disease with heart failure; I42.9 Cardiomyopathy, unspecified; I44.7 Left bundle-branch block, unspecified; J45.909 Unspecified asthma, uncomplicated; K21.9 Gastro-esophageal reflux disease without esophagitis; Z79.01 Long term (current) use of anticoagulants; Z87.891 Personal history of nicotine dependence
CPT/HCPCS: 36415; 71045; 80048; 80053; 82550; 82553; 83735; 83880; 84439; 84443; 84484; 85025; 85610; 85730; 93005; 93306; 94640; 94760; 96361; 96365; 96366; 96376; 99285

== ENCOUNTER → 2018-04-17 | Outpatient (CLI) | payer MEDICARE ==
--- NOTE | 2018-04-17 15:22 | US ---
EXAMINATION TYPE: US carotid duplex BILAT DATE OF EXAM: 04/17/2018 COMPARISON: NONE CLINICAL HISTORY: I65.23 Occlusion and stenosis of bilateral carotid. visual disturbances following c ardiac cath. EXAM MEASUREMENTS: RIGHT: Peak Systolic Velocity (PSV) cm/sec ----- Right CCA: 56.4 ----- Right ICA: 66.0 ----- Right ECA: 101.8 ICA/CCA ratio: 1.2 RIGHT: End Diastole cm/sec ----- Right CCA: 12.9 ----- Right ICA: 14.5 ----- Right ECA: 11.1 LEFT: Peak Systolic Velocity (PSV) cm/sec ----- Left CCA: 66.4 ----- Left ICA: 101.8 ----- Left ECA: 89.2 ICA/CCA ratio: 1.5 LEFT: End Diastole cm/sec ----- Left CCA: 18.4 ----- Left ICA: 24.8 ----- Left ECA: 9.6 VERTEBRALS (direction of flow): Right Vertebral: Antegrade Left Vertebral: Antegrade Rhythm: Normal Atherosclerotic changes seen. No increased flow velocities. IMPRESSION: 1. Atherosclerotic changes with no significant stenosis as visualized. Criteria for Assigning % of Stenosis / Diameter reduction (Estimation based on the indirect measurements of the internal carotid artery velocities (ICA PSV). 1. Normal (no stenosis)=ICA PSV < 125 cm/s: ratio < 2.0: ICA EDV<40 cm/s. 2. Less than 50% stenosis=ICA PSV < 125 cm/s: ratio < 2.0: ICA EDV<40 cm/s. 3. 50 to 69% stenosis=ICA PSV of 125 to 230 cm/s: ration 2.0 ? 4.0: ICA EDV 40-100 cm/s. 4. Greater than 70% stenosis to near occlusion= ICA PSV > 230 cm/s: ratio > 4.0: ICA EDV > 100 cm/s. 5. Near occlusion= ICA PSV velocities may be low or undetectable: variable ratio and ICA EDV. 6. Total occlusion=unable to detect flow.
== END | disposition home or self-care (01) ==
LOC: RADUSWWP 14:41
PROVIDERS: ATTEND Family Medicine
DX: I65.23 Occlusion and stenosis of bilateral carotid arteries (principal)
CPT/HCPCS: 93880

== ENCOUNTER 2018-04-23 13:46 | Emergency (ER) | payer MEDICARE ==
[2018-04-23 13:59] VITALS: BP 145/93; PULSE 75; RESP 16; TEMP 98.5
--- NOTE | 2018-04-23 14:19 | ED ---
General Adult HPI - General Chief complaint: Head Injury Stated complaint: hit head Time Seen by Provider: 04/23/18 14:00 Source: patient, RN notes reviewed, old records reviewed Mode of arrival: wheelchair Limitations: no limitations - History of Present Illness Initial comments: 77-year-old female patient past medical history of atrial fibrillation and r egulated Ahlquist presents to ED after having a trauma to head. Patient reports that she was picking up a humidifier on the shelf when the plastic water base and fell off the bottom and had her on the apex of her skull. Patient denies any loss of consciousness. Patient reports that it was not full water, it is made of plastic. Patient denies any secondary fall, secondary trauma. Patient denies ED for evaluation of head trauma secondary to her being anticoagulated. Patient denies any headache, loss of consciousness. Patient reports that this occurred at approximately noon. Systemic: Pt denies fatigue, myalgia, fever/chills, rash. Pt denies weakness, night sweats, weight loss. Neuro: Pt denies headache, visual disturbances, syncope or pre-syncope. HEENT: Pt denies ocular discharge or irritation, otalgia, rhinorrhea, pharyngitis or notable lymphadenopathy. Cardiopulmonary: Pt denies chest pain, SOB, heart palpitations, dyspnea on exertion. Abdominal/GI: Pt denies abdominal pain, n/v/d. : Pt denies dysuria, burning w/ urination, frequency/urgency. Denies new onset urinary or bowel incontinence. MSK: Pt denies myalgia, loss of strength or function in extremities. Neuro: Pt denies new onset weakness, paresthesias. - Related Data Home Medications Medication Instructions Recorded Confirmed Glucosamine-Chondr 500-400Mg 3 tab PO DAILY 07/08/13 12/28/17 Tiotropium [place] [Spiriva] 1 cap INHALATION RT-DAILY 07/08/13 12/28/17 Budesonide/Formoterol Fumarate 2 puff INHALATION RT-BID 01/03/15 12/28/17 [Symbicort 80-4.5 Mcg Inhaler] Selenium 200 mcg PO DAILY 01/03/15 12/28/17 Thyroid,Pork [Nature-Throid] 65 mg PO QAM 01/03/15 12/28/17 Ascorbic Acid [Vitamin C] 1,000 mg PO DAILY 01/25/17 12/28/17 Beclomethasone Dipropionate [Qvar 2 puff INHALATION RT-BID 01/25/17 12/28/17 40 mcg] Cetirizine HCl [Zyrtec] 10 mg PO HS 01/25/17 12/28/17 Chromium 250mcg 250 mcg PO DAILY 01/25/17 12/28/17 Cinnamon Bark [Cinnamon] 500 mg PO DAILY 01/25/17 12/28/17 Cyanocobalamin (Vitamin B-12) 5,000 mcg PO DAILY 01/25/17 12/28/17 [Vitamin B-12] Fenofibrate Nanocrystallized 145 mg PO HS 01/25/17 12/28/17 [Tricor] Levalbuterol Tartrate [Xopenex Hfa 1 puff INHALATION RT-Q6H PRN 01/25/17 12/28/17 Inhaler] Pro [place] + D Extra 2,800 mg PO BID 01/25/17 12/28/17 Ubidecarenone [Co Q-10] 100 mg PO DAILY 01/25/17 12/28/17 guaiFENesin [Mucinex] 600 mg PO BID 01/25/17 12/28/17 Bumetanide [BUMEX] 1 mg PO DAILY 12/28/17 12/28/17 Previous Rx's Medication Instructions Recorded Apixaban [Eliquis] 5 mg PO BID #60 tab 01/27/17 Potassium Chloride ER [K-Dur 10] 10 meq PO DAILY #30 tab.er.prt 01/27/17 Metoprolol Tartrate [Lopressor] 25 mg PO TID #90 tab 12/31/17 Sacubitril/Valsartan [Entresto 24 1 each PO BID #60 tablet 12/31/17 mg-26 mg Tablet] Allergies Allergy/AdvReac Type Severity Reaction Status Date / Time quinine [From Qualaquin] Allergy Unknown Unknown Verified 12/28/17 07:25 latex Allergy Unknown Verified 12/28/17 07:25 ciprofloxacin AdvReac Rash/Hives Verified 04/23/18 14:00 Penicillins AdvReac Unknown Verified 12/28/17 07:25 zinc AdvReac Anaphylaxis Verified 04/23/18 14:00 Review of Systems ROS Statement: Those systems with pertinent positive or pertinent negative responses have been documented in the HPI. ROS Other: All systems not noted in ROS Statement are negative. Past Medical History Past Medical History: Atrial Fibrillation, Asthma, GERD/Reflux, Hyperlipidemia, Hypertension, Thyroid Disorder Additional Past Medical History / Comment(s): STATES SEASONAL ALLERGIES, History of Any Multi-Drug Resistant Organisms: None Reported Past Surgical History: Heart Catheterization, Tubal Ligation Additional Past Surgical History / Comment(s): OMAR CATARACTS, ABD SX TO REMOVE TUMOR FROM UTERUS Past Anesthesia/Blood Transfusion Reactions: Postoperative Nausea & Vomiting (PONV) Past Psychological History: No Psychological Hx Reported Smoking Status: Former smoker Past Alcohol Use History: None Reported Past Drug Use History: None Reported - Past Family History Mother Family Medical History: Renal Disease Father Family Medical History: No Reported History Additional Family Medical History / Comment(s): of "old age", in his 80's. No known history General Exam - General Exam Comments Initial Comments: Constitutional: NAD, AOX3, Pt has pleasant affect. HEENT: NC/AT, trachea midline, neck supple, no lymphadenopathy. Posterior pharynx non erythematous, without exudates. External ears appear normal, without discharge. Mucous membranes moist. Eyes PERRLA, EOM intact. There is no scleral icterus. No pallor noted. Cardiopulmonary: RRR, no murmurs, rubs or gallops, no JVD noted. Lungs CTAB in anterior and posterior healy. No peripheral edema. Abdominal exam: Abdomen soft and non-distended. Abdomen non-tender to palpation in all 4 quadrants. Bowel sounds active in LLQ. No hepatosplenomegaly. No ecchymosis Neuro: CN II-XII intact. No nuchal rigidity. No facial droop or focal deficit. No prather sign, no raccoon eyes, no ecchymoses, no contusions, no laceration. Repeat neuro exam wnl. MSK: No posterior calf tenderness bilaterally, homans sign negative bilaterally. Posterior tibialis and radial pulse +2 bilaterally. Sensation intact in upper and lower extremities. Full active ROM in upper and lower extremities, 5/5 stregnth. Limitations: no limitations Course Vital Signs 04/23/18 13:53 Temperature 98.5 F Pulse Rate 75 Respiratory 16 Rate Blood Pressure 145/93 O2 Sat by Pulse 96 Oximetry Medical Decision Making - Medical Decision Making 77-year-old female patient past medical history of atrial fibrillation and regulated Ahlquist presents to ED after having a trauma to head. Patient reports that she was picking up a humidifier on the shelf when the plastic water base and fell off the bottom and had her on the apex of her skull. Patient denies any loss of consciousness. Patient reports that it was not full water, it is made of plastic. Patient denies any secondary fall, secondary trauma. Patient denies ED for evaluation of head trauma secondary to her being anticoagulated. Patient denies any headache, loss of consciousness. Patient vital signs stable, afebrile. Physical exam displayed: CN II-XII intact. No nuchal rigidity. No facial droop or focal deficit. No prather sign, no raccoon eyes, no ecchymoses, no contusions, no laceration. Repeat neuro exam wnl. CT of brain and cervical spine did not display any acute pathology. Patient discharged, will follow up with primary care provider in 1-2 days. Patient to ER if new signs or symptoms develop or condition worsens in any way. Return precautions discussed, patient verbalized understanding. Case discussed with Dr. De León. Disposition Clinical Impression: Minor head trauma Disposition: HOME SELF-CARE Condition: Stable Instructions (If sedation given, give patient instructions): Fall Prevention for Older Adults (ED) Additional Instructions: Patient to adhere to previously discussed treatment plan and will take med ication(s) as directed. Patient to follow up with PCP in 1-2 days. Patient to return to ED if symptoms do not improve. Please return to ER if condition worsens in any way. Please follow-up with [facility] care provider in 1-2 days. Is patient prescribed a controlled substance at d/c from ED?: No Referrals: Hayden Martinez MD [Primary Care Provider] - 1-2 days
--- NOTE | 2018-04-23 14:30 | CT ---
EXAMINATION TYPE: CT brain cspine wo con DATE OF EXAM: 04/23/2018 COMPARISON: CT brain April 05, 2013 HISTORY: Bucket hit head with headache and neck pain CT DLP: 1307.3 mGycm. Automated Exposure Control for Dose Reduction was Utilized. TECHNIQUE: CT scan of the head and cervical spine are performed without contrast. FINDINGS: There is no acute intracranial hemorrhage or midline shift identified. Ventricular and mendez lcal prominence is redemonstrated. Bilateral basal ganglia calcifications are seen. The globes are in tact and the visualized sinuses are clear. The calvarium is intact. Cervical spine is visualized in its entirety from C1 through upper thoracic levels and demonstrates s traightened alignment without evidence of acute fracture or dislocation. Prevertebral soft tissue ap pears within normal limits. The C1-C2 articulation is within normal limits on the coronal images. V ertebral body heights are maintained. There is moderate spurring and disc space narrowing C5-C6 and C 6-C7 levels. Posterior spur disc complexes are effacing anterior thecal sac at these levels. Review o f axial images shows uncovertebral facet degenerative changes causing neural foraminal narrowing at r ight C2-C3, left C3-C4, and right greater than left bilateral C4-C5 levels along with bilateral C5-C6 levels moderate neural foraminal narrowing is present. Thyroid gland is normal in size. Visualized l antonia apices show no pneumothorax. IMPRESSION: 1. There is no acute fracture or dislocation evident in the cervical spine. 2. No acute intracranial hemorrhage or midline shift is seen.
== END 2018-04-23 14:45 | disposition home or self-care (01) ==
LOC: EC 13:46
DX: S09.90XA Unspecified injury of head, initial encounter (principal); I48.91 Unspecified atrial fibrillation; J45.909 Unspecified asthma, uncomplicated; E78.5 Hyperlipidemia, unspecified; I10 Essential (primary) hypertension; E07.9 Disorder of thyroid, unspecified; Z87.891 Personal history of nicotine dependence; Z88.0 Allergy status to penicillin; Z88.1 Allergy status to other antibiotic agents; Z88.8 Allergy status to other drugs, medicaments and biological substances; Z91.040 Latex allergy status; Z91.048 Other nonmedicinal substance allergy status; Z79.01 Long term (current) use of anticoagulants; Z79.51 Long term (current) use of inhaled steroids; Z79.890 Hormone replacement therapy; Z79.899 Other long term (current) drug therapy; Z95.818 Presence of other cardiac implants and grafts; W20.8XXA Other cause of strike by thrown, projected or falling object, initial encounter; Y93.89 Activity, other specified
CPT/HCPCS: 70450; 72125; 99284

== ENCOUNTER → 2018-05-05 | Outpatient (CLI) | payer MEDICARE ==
[2018-05-06 13:05] VITALS: BMI 38.9
== END | disposition home or self-care (01) ==
LOC: LABWHC1 13:07
PROVIDERS: ATTEND Family Medicine
DX: E66.9 Obesity, unspecified (principal); Z68.38 Body mass index [BMI] 38.0-38.9, adult
CPT/HCPCS: 97802

== ENCOUNTER → 2019-07-28 | Outpatient (CLI) | payer MEDICARE ==
--- NOTE | 2019-08-02 07:59 | MM ---
Reason for exam: screening (asymptomatic). Last mammogram was performed 2 years and 4 months ago. History: Patient is postmenopausal. Family history of breast cancer in maternal cousin and breast cancer in maternal cousin at age 35. Physical Findings: A clinical breast exam by your physician is recommended on an annual basis and results should be correlated with mammographic findings. MG 3D Screening Mammo W/Cad Bilateral CC and MLO view(s) were taken. XCCL view(s) were taken of the left breast. Prior study comparison: March 14, 2017, bilateral MG 3d screening mammo w/cad. January 03, 2015, mammogram, performed at [facility]. There are scattered fibroglandular densities. Benign secretory calcifications on the left. No significant changes when compared with prior studies. ASSESSMENT: Negative, BI-RAD 1 RECOMMENDATION: Routine screening mammogram of both breasts in 1 year.
== END | disposition home or self-care (01) ==
LOC: RADMAMWWP 13:51
PROVIDERS: ATTEND Family Medicine
DX: Z12.31 Encounter for screening mammogram for malignant neoplasm of breast (principal)
CPT/HCPCS: 77063; 77067

== ENCOUNTER 2019-09-29 14:00 | Emergency (ER) | payer MEDICARE ==
[2019-09-29 14:14] VITALS: BP 146/60; PULSE 63; RESP 18; TEMP 97.7
--- NOTE | 2019-09-29 14:45 | ED ---
Overdose HPI - General Chief Complaint: Overdose Stated Complaint: Accidental Overdose-took double medications Time Seen by Provider: 09/29/19 14:05 Source: patient, RN notes reviewed, old records reviewed Mode of arrival: ambulatory Limitations: no limitations - History of Present Illness Initial Comments: This is a 79-year-old female DF she presents today for evaluation regarding possible overdose, patient of morning and night medications this afternoon. Patient became very concerned that she may suffer some sort of reaction. Patient also denies complaint aside from anxiety, patient did this on accident MD Complaint: accidental overdose -: hour(s) Intent: other (Axillae took morning and night medications) How Overdose Was Discovered: called family/friend Context: Accidental Overdose: medication error Associated Symptoms: nausea/vomiting (Patient is having anxiety secondary to taking the medications) Treatments Prior to Arrival: none - Related Data Home Medications Medication Instructions Recorded Confirmed Glucosamine-Chondr 500-400Mg 3 tab PO DAILY 07/08/13 09/29/19 Tiotropium [place] [Spiriva] 1 cap INHALATION RT-DAILY 07/08/13 09/29/19 Budesonide/Formoterol Fumarate 2 puff INHALATION RT-BID 01/03/15 09/29/19 [Symbicort 80-4.5 Mcg Inhaler] Selenium 200 mcg PO DAILY 01/03/15 09/29/19 Beclomethasone Dipropionate [Qvar 2 puff INHALATION RT-BID 01/25/17 09/29/19 40 mcg] Chromium 250mcg 250 mcg PO BID 01/25/17 09/29/19 Cyanocobalamin (Vitamin B-12) 5,000 mcg PO DAILY 01/25/17 09/29/19 [Vitamin B-12] Fenofibrate Nanocrystallized 145 mg PO HS 01/25/17 09/29/19 [Tricor] guaiFENesin [Mucinex] 600 mg PO BID 01/25/17 09/29/19 Bumetanide [BUMEX] 1 mg PO DAILY 12/28/17 09/29/19 Ascorbic Acid [Vitamin C] 500 mg PO BID 09/29/19 09/29/19 Aspirin EC [Ecotrin Low Dose] 81 mg PO DAILY 09/29/19 09/29/19 Cholecalciferol [Vitamin D3 (25 5,000 unit PO DAILY 09/29/19 09/29/19 Mcg = 1000 Iu)] Cod Liver Oil 1 cap PO TID 09/29/19 09/29/19 Fluticasone Nasal [place] [Flonase 1 spr EA NOSTRIL DAILY PRN 09/29/19 09/29/19 Nasal [place]] Levocetirizine Dihydrochloride 5 mg PO DAILY 09/29/19 09/29/19 [Xyzal] Metoprolol Tartrate [Lopressor] 50 mg PO BID 09/29/19 09/29/19 Pantoprazole Sodium [Protonix] 40 mg PO BID 09/29/19 09/29/19 Sacubitril/Valsartan [Entresto 24 1 tab PO BID 09/29/19 09/29/19 mg-26 mg Tablet] Sotalol [Betapace] 80 mg PO BID 09/29/19 09/29/19 Thyroid,Pork [[place] Thyroid] 60 mg PO DAILY 09/29/19 09/29/19 Previous Rx's Medication Instructions Recorded Apixaban [Eliquis] 5 mg PO BID #60 tab 01/27/17 Allergies Allergy/AdvReac Type Severity Reaction Status Date / Time quinine [From Qualaquin] Allergy Unknown Unknown Verified 12/28/17 07:25 latex Allergy Unknown Verified 12/28/17 07:25 ciprofloxacin AdvReac Rash/Hives Verified 04/23/18 14:00 Penicillins AdvReac Unknown Verified 12/28/17 07:25 zinc AdvReac Anaphylaxis Verified 04/23/18 14:00 Review of Systems ROS Statement: Those systems with pertinent positive or pertinent negative responses have been documented in the HPI. ROS Other: All systems not noted in ROS Statement are negative. Past Medical History Past Medical History: Atrial Fibrillation, Asthma, GERD/Reflux, Hyperlipidemia, Hypertension, Thyroid Disorder Additional Past Medical History / Comment(s): STATES SEASONAL ALLERGIES, History of Any Multi-Drug Resistant Organisms: None Reported Past Surgical History: Heart Catheterization, Tubal Ligation Additional Past Surgical History / Comment(s): OMAR CATARACTS, ABD SX TO REMOVE TUMOR FROM UTERUS Past Anesthesia/Blood Transfusion Reactions: Postoperative Nausea & Vomiting (PONV) Past Psychological History: No Psychological Hx Reported Smoking Status: Former smoker Past Alcohol Use History: None Reported Past Drug Use History: None Reported - Past Family History Mother Family Medical History: Renal Disease Father Family Medical History: No Reported History Additional Family Medical History / Comment(s): of "old age", in his 80's. No known history General Exam Limitations: no limitations General appearance: alert, in no apparent distress, anxious Head exam: Present: atraumatic, normocephalic, normal inspection Eye exam: Present: normal appearance, PERRL, EOMI. Absent: scleral icterus, conjunctival injection, periorbital swelling ENT exam: Present: normal exam, mucous membranes moist Neck exam: Present: normal inspection. Absent: tenderness, meningismus, lymphadenopathy Respiratory exam: Present: normal lung sounds bilaterally. Absent: respiratory distress, wheezes, rales, rhonchi, stridor Cardiovascular Exam: Present: regular rate, normal rhythm, normal heart sounds. Absent: systolic murmur, diastolic murmur, rubs, gallop, clicks GI/Abdominal exam: Present: soft, normal bowel sounds. Absent: distended, tenderness, guarding, rebound, rigid Extremities exam: Present: normal inspection, full ROM, normal capillary refill. Absent: tenderness, pedal edema, joint swelling, calf tenderness Back exam: Present: normal inspection Neurological exam: Present: alert, oriented X3, CN II-XII intact Psychiatric exam: Present: normal affect, normal mood Skin exam: Present: warm, dry, intact, normal color. Absent: rash Course Vital Signs 09/29/19 14:06 Temperature 97.7 F Pulse Rate 63 Respiratory 18 Rate Blood Pressure 146/60 O2 Sat by Pulse 95 Oximetry - Reevaluation(s) Reevaluation #1: 09/29/19 14:44 Medical records reviewed Reevaluation #2: 09/29/19 14:44 Medication list is evaluated, all medications have large therapeutic index Medical Decision Making - Medical Decision Making 79 female of accidental drug overdose, patient accident family took normal her home meds both morning and night this afternoon. Patient is awake alert vital signs are normal she can be discharged Disposition Clinical Impression: Accidental drug overdose Disposition: HOME SELF-CARE Condition: Good Instructions (If sedation given, give patient instructions): Adult Overdose (ED) Is patient prescribed a controlled substance at d/c from ED?: No Referrals: Hayden Martinez MD [Primary Care Provider] - 1-2 days
== END 2019-09-29 15:24 | disposition home or self-care (01) ==
LOC: EC 14:00
DX: T50.901A Poisoning by unspecified drugs, medicaments and biological substances, accidental (unintentional), initial encounter (principal); I10 Essential (primary) hypertension; J45.909 Unspecified asthma, uncomplicated; E07.9 Disorder of thyroid, unspecified; E78.5 Hyperlipidemia, unspecified; K21.9 Gastro-esophageal reflux disease without esophagitis; I48.91 Unspecified atrial fibrillation; Z79.82 Long term (current) use of aspirin; Z79.890 Hormone replacement therapy; Z79.899 Other long term (current) drug therapy; Z79.51 Long term (current) use of inhaled steroids; Z88.0 Allergy status to penicillin; Z91.040 Latex allergy status; Z88.1 Allergy status to other antibiotic agents; Z91.09 Other allergy status, other than to drugs and biological substances; Z87.891 Personal history of nicotine dependence
CPT/HCPCS: 99284

== ENCOUNTER → 2020-01-05 | Outpatient (CLI) | payer MEDICARE ==
--- NOTE | 2020-01-05 13:29 | XR ---
EXAMINATION TYPE: XR chest 2V DATE OF EXAM: 01/05/2020 COMPARISON: 12/28/2017 HISTORY: Shortness of breath TECHNIQUE: Frontal and lateral views of the chest are obtained. FINDINGS: Scattered senescent parenchymal changes noted. Hyperinflation compatible with COPD. Patchy right perihilar and right lower lobe infiltrate. Correlate for pneumonia. Heart size is stable. Mediastinal structures are stable and grossly unremarkable. No evidence for hilar prominence. Degenerative changes dorsal spine. IMPRESSION: 1. Patchy right perihilar and right lower lobe infiltrate. Correlate for pneumonia.
== END | disposition home or self-care (01) ==
LOC: RADXRMAIN 13:03
PROVIDERS: ATTEND Family Medicine
DX: R91.8 Other nonspecific abnormal finding of lung field (principal); R06.00 Dyspnea, unspecified
CPT/HCPCS: 71046

== ENCOUNTER 2020-01-21 17:58 | Emergency (ER) | payer MEDICARE ==
[2020-01-21 18:25] VITALS: BP 155/76; PULSE 58; RESP 18; TEMP 98
[2020-01-21] MEDS ORDERED: DIPH,PERTUS(ACELL)TETVAC-LF 0.5 ML VIAL IM ONE (19:04)
--- NOTE | 2020-01-21 19:08 | ED ---
General Adult HPI - General Chief complaint: Skin/Abscess/Foreign Body Stated complaint: fall, rt hand injury Time Seen by Provider: 01/21/20 18:48 Source: patient Mode of arrival: ambulatory Limitations: no limitations - History of Present Illness Initial comments: Dictation was produced using [employer] dictation software. please excuse any grammatical, word or spelling errors. This patient was cared for during a federal and state declared state of emergency secondary to Covid 19 Chief Complaint: 79-year-old female presents with skin tear to the hand History of Present Illness: Is an 79-year-old female she takes [place]. Patient states that she had a mechanical fall at approximately 2 PM today. Patient reports that she tripped over something on the ground causing her to fall forward. She denies any head injury. She didn't strike her hand. She suffered bilateral hand skin tears to the dorsum of the right hand. She complains of some mild hand pain on the right. She has no other complaints. Denies any head trauma. No loss of consciousness. There was a bystander who saw and witnessed the fall and had medical supplies and cleaned her wound and provided her with basic bandages. The ROS documented in this emergency department record has been reviewed and confirmed by me. Those systems with pertinent positive or negative responses have been documented in the HPI. All other systems are other negative and/or noncontributory. PHYSICAL EXAM: General Impression: Alert and oriented x3, not in acute distress HEENT: Normocephalic atraumatic, extra-ocular movements intact, pupils equal and reactive to light bilaterally, mucous membranes moist Cardiovascular: Heart regular rate and rhythm Chest: Able to complete full sentences, no retractions, no tachypnea Abdomen: abdomen soft, non-tender, non-distended, no organomegaly Musculoskeletal: Pulses present and equal in all extremities, no peripheral edema Motor: no focal deficits noted Neurological: CN II-XII grossly intact, no focal motor or sensory deficits noted Skin: Intact with no visualized rashes Right hand: There are 2 skin tears to the dorsum of the right hand measuring approximately 2 x 2 centimeters each, no explosive continues tissues, dermis is very thin. Psych: Normal affect and mood ED course: 79-year-old female presents with an injury after a mechanical fall today. As upon arrival are within acceptable limits. Patient's skin is very frail. Lacerations not indicated in this situation given outpatient services secondary to age. X-rays are unremarkable. Patient's tetanus is updated. Patient given bandage dressing. She is counseled and taught how to change her bandages at home. Patient advised follow-up with primary care physician upon discharge. Return parameters discussed. - Related Data Home Medications Medication Instructions Recorded Confirmed Glucosamine-Chondr 500-400Mg 3 tab PO DAILY 07/08/13 09/29/19 Tiotropium [place] [Spiriva] 1 cap INHALATION RT-DAILY 07/08/13 09/29/19 Budesonide/Formoterol Fumarate 2 puff INHALATION RT-BID 01/03/15 09/29/19 [Symbicort 80-4.5 Mcg Inhaler] Selenium 200 mcg PO DAILY 01/03/15 09/29/19 Beclomethasone Dipropionate [Qvar 2 puff INHALATION RT-BID 01/25/17 09/29/19 40 mcg] Chromium 250mcg 250 mcg PO BID 01/25/17 09/29/19 Cyanocobalamin (Vitamin B-12) 5,000 mcg PO DAILY 01/25/17 09/29/19 [Vitamin B-12] Fenofibrate Nanocrystallized 145 mg PO HS 01/25/17 09/29/19 [Tricor] guaiFENesin [Mucinex] 600 mg PO BID 01/25/17 09/29/19 Bumetanide [BUMEX] 2 mg PO DAILY 12/28/17 09/29/19 Ascorbic Acid [Vitamin C] 500 mg PO BID 09/29/19 09/29/19 Aspirin EC [Ecotrin Low Dose] 81 mg PO DAILY 09/29/19 09/29/19 Cholecalciferol [Vitamin D3 (25 5,000 unit PO DAILY 09/29/19 09/29/19 Mcg = 1000 Iu)] Cod Liver Oil 1 cap PO TID 09/29/19 09/29/19 EPINEPHrine (Auto Inject) [Epipen] 0.3 mg IM ONCE PRN 09/29/19 09/29/19 Fluticasone Nasal [place] [Flonase 1 spr EA NOSTRIL DAILY PRN 09/29/19 09/29/19 Nasal [place]] Levocetirizine Dihydrochloride 5 mg PO DAILY 09/29/19 09/29/19 [Xyzal] Metoprolol Tartrate [Lopressor] 50 mg PO BID 09/29/19 09/29/19 Pantoprazole Sodium [Protonix] 40 mg PO BID 09/29/19 09/29/19 Sacubitril/Valsartan [Entresto 24 2 tab PO BID 09/29/19 09/29/19 mg-26 mg Tablet] Sotalol [Betapace] 80 mg PO BID 09/29/19 09/29/19 Thyroid,Pork [[place] Thyroid] 60 mg PO DAILY 09/29/19 09/29/19 Previous Rx's Medication Instructions Recorded Apixaban [Eliquis] 5 mg PO BID #60 tab 01/27/17 Allergies Allergy/AdvReac Type Severity Reaction Status Date / Time quinine [From Qualaquin] Allergy Unknown Unknown Verified 01/21/20 18:25 latex Allergy Unknown Verified 01/21/20 18:25 ciprofloxacin AdvReac Rash/Hives Verified 01/21/20 18:25 Penicillins AdvReac Unknown Verified 01/21/20 18:25 zinc AdvReac Anaphylaxis Verified 01/21/20 18:25 Review of Systems ROS Statement: Those systems with pertinent positive or pertinent negative responses have been documented in the HPI. ROS Other: All systems not noted in ROS Statement are negative. Past Medical History Past Medical History: Atrial Fibrillation, Asthma, GERD/Reflux, Hyperlipidemia, Hypertension, Thyroid Disorder Additional Past Medical History / Comment(s): STATES SEASONAL ALLERGIES, History of Any Multi-Drug Resistant Organisms: None Reported Past Surgical History: Heart Catheterization, Tubal Ligation Additional Past Surgical History / Comment(s): OMAR CATARACTS, ABD SX TO REMOVE TUMOR FROM UTERUS Past Anesthesia/Blood Transfusion Reactions: Postoperative Nausea & Vomiting (PONV) Past Psychological History: No Psychological Hx Reported Smoking Status: Former smoker Past Alcohol Use History: None Reported Past Drug Use History: None Reported - Past Family History Mother Family Medical History: Renal Disease Father Family Medical History: No Reported History Additional Family Medical History / Comment(s): of "old age", in his 80's. No known history General Exam Limitations: no limitations Course Vital Signs 01/21/20 18:20 Temperature 98 F Pulse Rate 58 L Respiratory 18 Rate Blood Pressure 155/76 O2 Sat by Pulse 95 Oximetry Disposition Clinical Impression: Skin tear Disposition: HOME SELF-CARE Condition: Good Instructions (If sedation given, give patient instructions): Skin Tear (ED) Is patient prescribed a controlled substance at d/c from ED?: No Referrals: Hayden Martinez MD [Primary Care Provider] - 1-2 days Time of Disposition: 19:41
--- NOTE | 2020-01-21 19:36 | XR ---
EXAMINATION TYPE: XR hand complete RT DATE OF EXAM: 01/21/2020 COMPARISON: NONE HISTORY: Fall. Contusion. TECHNIQUE: 3 views FINDINGS: There is narrowing of the IP joint spaces with spur formation. There is moderate narrowing and spurring at the first carpometacarpal joint. I see no fracture nor dislocation. IMPRESSION: Multiple areas of osteoarthritis. No fracture.
== END 2020-01-21 19:50 | disposition home or self-care (01) ==
LOC: EC 17:58
DX: S61.411A Laceration without foreign body of right hand, initial encounter (principal); J45.909 Unspecified asthma, uncomplicated; I48.91 Unspecified atrial fibrillation; K21.9 Gastro-esophageal reflux disease without esophagitis; E78.5 Hyperlipidemia, unspecified; I10 Essential (primary) hypertension; R54 Age-related physical debility; E07.9 Disorder of thyroid, unspecified; Z79.51 Long term (current) use of inhaled steroids; Z79.82 Long term (current) use of aspirin; Z79.899 Other long term (current) drug therapy; Z79.890 Hormone replacement therapy; Z87.891 Personal history of nicotine dependence; Z91.040 Latex allergy status; Z88.0 Allergy status to penicillin; Z88.1 Allergy status to other antibiotic agents; Z88.8 Allergy status to other drugs, medicaments and biological substances; Z95.5 Presence of coronary angioplasty implant and graft; W01.0XXA Fall on same level from slipping, tripping and stumbling without subsequent striking against object, initial encounter; Z79.01 Long term (current) use of anticoagulants
CPT/HCPCS: 90471; 90715; 99283

== ENCOUNTER 2020-09-13 20:05 | Emergency (ER) | payer MEDICARE ==
[2020-09-13 20:41] VITALS: BP 129/61; PULSE 72; RESP 17; TEMP 98.5
[2020-09-13] MEDS ORDERED: diphenhydrAMINE 50 MG CAP PO STA (20:57)
[2020-09-13] MEDS ORDERED: dexAMETHasone 4 MG TAB PO STA (20:57)
[2020-09-13] MEDS ORDERED: FAMOTIDINE 20 MG TAB PO STA (20:57)
--- NOTE | 2020-09-13 21:03 | ED ---
General Adult HPI - General Chief complaint: Skin/Abscess/Foreign Body Stated complaint: Bee sting Time Seen by Provider: 09/13/20 20:36 Source: patient Mode of arrival: ambulatory - History of Present Illness Initial comments: Dictation was produced using [employer] dictation software. please excuse any grammatical, word or spelling errors. Chief Complaint: 79-year-old female presents to the emergency Department with left arm pain and dishes to the lips after being stung by a wasp History of Present Illness: Patient is 79-year-old female she states that sev eral hours ago she was stung by a black wasp to her left pinky finger. She states that with some baking soda initially. States she was stung about an hour ago. Patient has history of the ALLERGIES. She carries an EpiPen. Since the sting she had short episode of some left upper extremity pain. States that pretty from her pinky to upper inner arm. She also had some tingling around the lips. Patient denies any chest pain. No shortness of breath. No lightheadedness. No nausea vomiting or abdominal pain. No rash. The ROS documented in this emergency department record has been reviewed and confirmed by me. Those systems with pertinent positive or negative responses have been documented in the HPI. All other systems are other negative and/or noncontributory. PHYSICAL EXAM: General Impression: Alert and oriented x3, not in acute distress HEENT: Normocephalic atraumatic, extra-ocular movements intact, pupils equal and reactive to light bilaterally, mucous membranes moist. Cardiovascular: Heart regular rate and rhythm Chest: Able to complete full sentences, no retractions, no tachypnea Abdomen: abdomen soft, non-tender, non-distended, no organomegaly Musculoskeletal: Pulses present and equal in all extremities, no peripheral edema Motor: no focal deficits noted Neurological: CN II-XII grossly intact, no focal motor or sensory deficits noted Skin: Intact with no visualized rashes Psych: Normal affect and mood ED course: 79-year-old female presents to the emergency department for ALLERGIC reaction secondary to black wasp sting. No signs upon arrival are within acce ptable limits. Clinical presentation does not suggest anaphylaxis. Patient given Decadron, Benadryl and Pepcid. Patient discharged with return precautions. - Related Data Home Medications Medication Instructions Recorded Confirmed Glucosamine-Chondr 500-400Mg 3 tab PO DAILY 07/08/13 09/29/19 Tiotropium [place] [Spiriva] 1 cap INHALATION RT-DAILY 07/08/13 09/29/19 Budesonide/Formoterol Fumarate 2 puff INHALATION RT-BID 01/03/15 09/29/19 [Symbicort 80-4.5 Mcg Inhaler] Selenium 200 mcg PO DAILY 01/03/15 09/29/19 Beclomethasone Dipropionate [Qvar 2 puff INHALATION RT-BID 01/25/17 09/29/19 40 mcg] Chromium 250mcg 250 mcg PO BID 01/25/17 09/29/19 Cyanocobalamin (Vitamin B-12) 5,000 mcg PO DAILY 01/25/17 09/29/19 [Vitamin B-12] Fenofibrate Nanocrystallized 145 mg PO HS 01/25/17 09/29/19 [Tricor] guaiFENesin [Mucinex] 600 mg PO BID 01/25/17 09/29/19 Bumetanide [BUMEX] 2 mg PO DAILY 12/28/17 09/29/19 Ascorbic Acid [Vitamin C] 500 mg PO BID 09/29/19 09/29/19 Aspirin EC [Ecotrin Low Dose] 81 mg PO DAILY 09/29/19 09/29/19 Cholecalciferol [Vitamin D3 (25 5,000 unit PO DAILY 09/29/19 09/29/19 Mcg = 1000 Iu)] Cod Liver Oil 1 cap PO TID 09/29/19 09/29/19 EPINEPHrine (Auto Inject) [Epipen] 0.3 mg IM ONCE PRN 09/29/19 09/29/19 Fluticasone Nasal [place] [Flonase 1 spr EA NOSTRIL DAILY PRN 09/29/19 09/29/19 Nasal [place]] Levocetirizine Dihydrochloride 5 mg PO DAILY 09/29/19 09/29/19 [Xyzal] Metoprolol Tartrate [Lopressor] 50 mg PO BID 09/29/19 09/29/19 Pantoprazole Sodium [Protonix] 40 mg PO BID 09/29/19 09/29/19 Sacubitril/Valsartan [Entresto 24 2 tab PO BID 09/29/19 09/29/19 mg-26 mg Tablet] Sotalol [Betapace] 80 mg PO BID 09/29/19 09/29/19 Thyroid,Pork [[place] Thyroid] 60 mg PO DAILY 09/29/19 09/29/19 Previous Rx's Medication Instructions Recorded Apixaban [Eliquis] 5 mg PO BID #60 tab 01/27/17 Allergies Allergy/AdvReac Type Severity Reaction Status Date / Time quinine [From Qualaquin] Allergy Unknown Unknown Verified 09/13/20 20:26 latex Allergy Unknown Verified 09/13/20 20:26 ciprofloxacin AdvReac Rash/Hives Verified 09/13/20 20:26 Penicillins AdvReac Unknown Verified 09/13/20 20:26 zinc AdvReac Anaphylaxis Verified 09/13/20 20:26 Review of Systems ROS Statement: Those systems with pertinent positive or pertinent negative responses have been documented in the HPI. ROS Other: All systems not noted in ROS Statement are negative. Past Medical History Past Medical History: Atrial Fibrillation, Asthma, GERD/Reflux, Hyperlipidemia, Hypertension, Thyroid Disorder Additional Past Medical History / Comment(s): STATES SEASONAL ALLERGIES, History of Any Multi-Drug Resistant Organisms: None Reported Past Surgical History: Heart Catheterization, Tubal Ligation Additional Past Surgical History / Comment(s): OMAR CATARACTS, ABD SX TO REMOVE TUMOR FROM UTERUS Past Anesthesia/Blood Transfusion Reactions: Postoperative Nausea & Vomiting (PONV) Past Psychological History: No Psychological Hx Reported Smoking Status: Former smoker Past Alcohol Use History: None Reported Past Drug Use History: None Reported - Past Family History Mother Family Medical History: Renal Disease Father Family Medical History: No Reported History Additional Family Medical History / Comment(s): of "old age", in his 80's. No known history Course Vital Signs 09/13/20 20:40 Temperature 98.5 F Pulse Rate 72 Respiratory 17 Rate Blood Pressure 129/61 O2 Sat by Pulse 98 Oximetry Disposition Clinical Impression: Wasp sting Disposition: HOME SELF-CARE Condition: Fair Instructions (If sedation given, give patient instructions): Insect Bite or Sti ng (ED) Additional Instructions: Significant medical attention with trouble breathing, rash, facial swelling, nausea, vomiting or lightheadedness Is patient prescribed a controlled substance at d/c from ED?: No Referrals: Hayden Martinez MD [Primary Care Provider] - 1-2 days
== END 2020-09-13 21:25 | disposition home or self-care (01) ==
LOC: EC 20:05
DX: T63.461A Toxic effect of venom of wasps, accidental (unintentional), initial encounter (principal); I48.91 Unspecified atrial fibrillation; I10 Essential (primary) hypertension; E78.5 Hyperlipidemia, unspecified; J45.909 Unspecified asthma, uncomplicated; K21.9 Gastro-esophageal reflux disease without esophagitis; Z79.82 Long term (current) use of aspirin; Z88.0 Allergy status to penicillin; Z91.040 Latex allergy status; Z88.1 Allergy status to other antibiotic agents; Z79.01 Long term (current) use of anticoagulants; Z98.51 Tubal ligation status; Z87.891 Personal history of nicotine dependence
CPT/HCPCS: 99282; J8540

== ENCOUNTER → 2020-12-05 | Outpatient (CLI) | payer MEDICARE ==
--- NOTE | 2020-12-07 10:22 | MM ---
Reason for exam: screening (asymptomatic). Last mammogram was performed 1 year and 4 months ago. History: Patient is postmenopausal. Family history of breast cancer in maternal cousin and breast cancer in maternal cousin at age 35. Physical Findings: A clinical breast exam by your physician is recommended on an annual basis and results should be correlated with mammographic findings. MG 3D Screening Mammo W/Cad Bilateral CC and MLO view(s) were taken. Prior study comparison: July 28, 2019, bilateral MG 3d screening mammo w/cad. March 14, 2017, bilateral MG 3d screening mammo w/cad. There are scattered fibroglandular densities. No significant changes when compared with prior studies. ASSESSMENT: Benign, BI-RAD 2 RECOMMENDATION: Routine screening mammogram of both breasts in 1 year.
== END | disposition home or self-care (01) ==
LOC: RADMAMWWP 11:14
PROVIDERS: ATTEND Family Medicine
DX: Z12.31 Encounter for screening mammogram for malignant neoplasm of breast (principal); Z80.3 Family history of malignant neoplasm of breast
CPT/HCPCS: 77063; 77067

== ENCOUNTER 2020-12-20 04:58 | Observation (INO) | payer MEDICARE ==
[2020-12-20] MEDS ORDERED: SODIUM CHLORIDE 0.9% 1,000 ML IV STA (05:04)
--- NOTE | 2020-12-20 05:22 | ED ---
Chest Pain HPI - General Chief Complaint: Chest Pain Stated Complaint: chest discomfort Time Seen by Provider: 12/20/20 05:04 Source: patient, EMS Mode of arrival: EMS Limitations: no limitations - Related Data Home Medications Medication Instructions Recorded Confirmed Glucosamine-Chondr 500-400Mg 3 tab PO DAILY 07/08/13 09/29/19 Tiotropium [place] [Spiriva] 1 cap INHALATION RT-DAILY 07/08/13 09/29/19 Budesonide/Formoterol Fumarate 2 puff INHALATION RT-BID 01/03/15 09/29/19 [Symbicort 80-4.5 Mcg Inhaler] Selenium 200 mcg PO DAILY 01/03/15 09/29/19 Beclomethasone Dipropionate [Qvar 2 puff INHALATION RT-BID 01/25/17 09/29/19 40 mcg] Chromium 250mcg 250 mcg PO BID 01/25/17 09/29/19 Cyanocobalamin (Vitamin B-12) 5,000 mcg PO DAILY 01/25/17 09/29/19 [Vitamin B-12] Fenofibrate Nanocrystallized 145 mg PO HS 01/25/17 09/29/19 [Tricor] guaiFENesin [Mucinex] 600 mg PO BID 01/25/17 09/29/19 Bumetanide [BUMEX] 2 mg PO DAILY 12/28/17 09/29/19 Ascorbic Acid [Vitamin C] 500 mg PO BID 09/29/19 09/29/19 Aspirin EC [Ecotrin Low Dose] 81 mg PO DAILY 09/29/19 09/29/19 Cholecalciferol [Vitamin D3 (25 5,000 unit PO DAILY 09/29/19 09/29/19 Mcg = 1000 Iu)] Cod Liver Oil 1 cap PO TID 09/29/19 09/29/19 EPINEPHrine (Auto Inject) [Epipen] 0.3 mg IM ONCE PRN 09/29/19 09/29/19 Fluticasone Nasal [place] [Flonase 1 spr EA NOSTRIL DAILY PRN 09/29/19 09/29/19 Nasal [place]] Levocetirizine Dihydrochloride 5 mg PO DAILY 09/29/19 09/29/19 [Xyzal] Metoprolol Tartrate [Lopressor] 50 mg PO BID 09/29/19 09/29/19 Pantoprazole Sodium [Protonix] 40 mg PO BID 09/29/19 09/29/19 Sacubitril/Valsartan [Entresto 24 2 tab PO BID 09/29/19 09/29/19 mg-26 mg Tablet] Sotalol [Betapace] 80 mg PO BID 09/29/19 09/29/19 Thyroid,Pork [[place] Thyroid] 60 mg PO DAILY 09/29/19 09/29/19 Previous Rx's Medication Instructions Recorded Apixaban [Eliquis] 5 mg PO BID #60 tab 01/27/17 Allergies Allergy/AdvReac Type Severity Reaction Status Date / Time quinine [From Qualaquin] Allergy Unknown Unknown Verified 12/20/20 05:11 latex Allergy Unknown Verified 12/20/20 05:11 ciprofloxacin AdvReac Rash/Hives Verified 12/20/20 05:11 Penicillins AdvReac Unknown Verified 12/20/20 05:11 zinc AdvReac Anaphylaxis Verified 12/20/20 05:11 Review of Systems ROS Statement: Those systems with pertinent positive or pertinent negative responses have been documented in the HPI. ROS Other: All systems not noted in ROS Statement are negative. EKG Findings - EKG Comments: EKG Findings:: EKG is paced 100, QRS 138 QTc 477 Past Medical History Past Medical History: Atrial Fibrillation, Asthma, GERD/Reflux, Hyperlipidemia, Hypertension, Thyroid Disorder Additional Past Medical History / Comment(s): STATES SEASONAL ALLERGIES, History of Any Multi-Drug Resistant Organisms: None Reported Past Surgical History: Heart Catheterization, Tubal Ligation Additional Past Surgical History / Comment(s): OMAR CATARACTS, ABD SX TO REMOVE TUMOR FROM UTERUS Past Anesthesia/Blood Transfusion Reactions: Postoperative Nausea & Vomiting (PONV) Past Psychological History: No Psychological Hx Reported Smoking Status: Former smoker Past Alcohol Use History: None Reported Past Drug Use History: None Reported - Past Family History Mother Family Medical History: Renal Disease Father Family Medical History: No Reported History Additional Family Medical History / Comment(s): of "old age", in his 80's. No known history General Exam Limitations: no limitations Course Vital Signs 12/20/20 12/20/20 12/20/20 05:00 05:12 06:23 Temperature 97.6 F Pulse Rate 112 H 106 H Pulse Rate [ 101 H [employer] ] Respiratory 18 18 Rate Blood Pressure 94/61 95/59 O2 Sat by Pulse 100 94 L Oximetry Disposition Clinical Impression: Atrial fibrillation with rapid ventricular response, Bundle branch block, left, Chest pain Disposition: ADMITTED IP TO THIS HOSP Condition: Fair Is patient prescribed a controlled substance at d/c from ED?: No Referrals: Hayden Martinez MD [Primary Care Provider] - 1-2 days
[2020-12-20] MEDS ORDERED: PANTOPRAZOLE 40 MG/10 ML VIAL IVP STA (05:23)
[2020-12-20] MEDS ORDERED: ONDANSETRON 4 MG/2 ML VIAL IVP STA (05:23)
[2020-12-20 05:45] LABS: Basophils % (A) 1 %; Eosinophils # (A) 0.2 k/uL (0-0.7); Eosinophils % (A) 3 %; HCT 42.1 % (34.0-46.0); HGB 13.4 gm/dL (11.4-16.0); Lymphocytes # (A) 2.1 k/uL (1.0-4.8); Lymphocytes % (A) 26 %; MCH 30.6 pg (25.0-35.0); MCHC 31.8 g/dL (31.0-37.0); Mean Platelet Volume 7.7; Monocytes # (A) 0.5 k/uL (0-1.0); Monocytes % (A) 6 %; Neutrophils % (A) 62 %; Platelet Count 259 k/uL (150-450); RBC 4.38 m/uL (3.80-5.40); RDW 13.2 % (11.5-15.5); WBC 8.1 k/uL (3.8-10.6)
[2020-12-20 05:57] LABS: Albumin 3.5 g/dL (3.5-5.0); Calcium 9.8 mg/dL (8.4-10.2); Magnesium 2.1 mg/dL (1.6-2.3); Phosphorus 2.3 mg/dL (2.5-4.5); Potassium 3.4 mmol/L (3.5-5.1); Total Bilirubin 0.5 mg/dL (0.2-1.3); Total Protein 6.1 g/dL (6.3-8.2)
[2020-12-20] MEDS ORDERED: ASPIRIN 81 MG PO STA (06:25)
[2020-12-20] MEDS ORDERED: NITROGLYCERIN SL TABS 0.4 MG TAB SUBLINGUAL PRN (06:25)
[2020-12-20 06:33] LABS: Partial Thromboplastin Time 23.3 sec (22.0-30.0); Prothrombin Time 10.8 sec (9.0-12.0)
[2020-12-20] MEDS: SODIUM CHLORIDE 0.9% 1,000 ML IV SCH (06:35)
[2020-12-20] MEDS ORDERED: POTASSIUM BICARBONATE/CIT AC 20 MEQ TABLET.EFF PO ONE (06:45)
[2020-12-20] MEDS ORDERED: METOPROLOL TARTRATE 25 MG TAB PO SCH (09:00)
[2020-12-20] MEDS ORDERED: BUMETANIDE 1 MG TAB PO SCH (09:15)
[2020-12-20] MEDS ORDERED: FUROSEMIDE 10 MG/ML 10 ML VIAL IV STA (09:31)
--- NOTE | 2020-12-20 10:53 | P.CRDCN ---
History of Present Illness History of present illness: HISTORY OF PRESENTING ILLNESS This is a pleasant 80-year-old female past medical history significant for paroxysmal atrial fibrillation, nonischemic cardiomyopathy, obesity, sick sinus syndrome s/p AICD Biv placement, hypertension, patient does endorse a history of cardiac arrest when she was diagnosed with Afib and her pacemaker was placed. She follows in the office with Dr. Zavala at [facility]. We have been asked to see in consultation for chest pain. Patient is seen and examined in the emergency department. Patient states that yesterday night she took her all her medications and about 15minutes later she went to bed. She woke up with episode of palpitations, extreme tiredness/fatigue and burning sensation across her chest. She had an episode of nausea and vomiting. Her extreme tirededness continued and called EMS. When EMS arrived patient found to be in atrial fibrillation with rapid ventricular response HR 130s. She states she was given PRN Nitroglyerin. At bedside, patient feeling much better. Her symptoms have resolved. She does have lower extremity edema. She denies any chest pain, lightheadedness, dizziness, syncope or presyncope. She denies any symptoms of orthopnea or PND. She denies tobacco or alcohol use. Records obtained from patient's dining services director Dr. Zavala office, patient did have a previous cardiac catheterization was unremarkable. She had an echocardiogram in the office 02/2020 which revealed with revealed an EF of 4549 percent, mild concentric hypertrophy of the left ventricle, mild mitral regurgitation, mild to moderate tricuspid regurgitation. No significant change from exam on 11/2018. Her last office visit she was maintaining sinus mechanism. DIAGNOSTICS EKG reveals atrial fibrillation RH 101, V pacer spikes, LVH, no signficant ST-T wave abnormalities Telemetry tracings indicate atrial fibrillation HR 95-low 100s. Laboratory reviewed, CBC unremarkable, sodium 136, potassium 3.4, BUN 25, serum, and 0.7, magnesium 2.1, troponin negative 1, proBNP 391, COVID-19 PCR negative. Current cardiac medications include Eliquis 5 mg twice a day, Bumex 1 mg twice a day, metoprolol titrate 50 mg twice a day, and chest of 49 mg/51 mg twice a day, sotalol 80 mg twice a day REVIEW OF SYSTEMS At the time of my exam: CONSTITUTIONAL: Denies fever or chills. CARDIOVASCULAR: +Burning chest pain, +bilateral lower extremity edema, Denies shortness of breath, orthopnea, PND or palpitations. RESPIRATORY: Denies cough. GASTROINTESTINAL: +nausea, +vomiting, Denies abdominal pain, diarrhea, constipation MUSCULOSKELETAL: Denies myalgias. NEUROLOGIC: Denies numbness, tingling, headacbe or weakness. ENDOCRINE: Denies fatigue, weight change, polydipsia or polyurina. GENITOURINARY: Denies burning, hematuria or urgency with micturation. HEMATOLOGIC: Denies history of anemia or bleeding. PHYSICAL EXAMINATION Blood pressure 106/51, heart rate 93, afebrile oxygen saturation 97% on room air CONSTITUTIONAL: No apparent distress. HEENT: Head is normocephalic. Pupils are equal, round. Sclerae anicteric. Mucous membranes of the mouth are moist. No JVD. No carotid bruit. CHEST EXAMINATION: Lungs are diminished bilaterally to auscultation. No chest wall tenderness is noted on palpation or with deep breathing. HEART EXAMINATION: Irregular rate and rhythm. S1, S2 heard. Systolic murmur left sternal border, No gallops or rub. ABDOMEN: Soft, nontender. Positive bowel sounds. EXTREMITIES: 2+ peripheral pulses, moderate bilateral lower extremity edema and no calf tenderness. NEUROLOGIC EXAMINATION: Patient is awake, alert and oriented x3. ASSESSMENT Paroxysmal atrial fibrillation with rapid ventricular response [id number] score 5, on eliquis Palpitations Nonischemic cardiomyopathy Sick sinus syndrome s/p AICD Biv placement History of cardiac arrest Hypertension Obesity History of hypertension History of dyslipidemia PLAN Records obtained from patient's dining services director Will check 2D echocardiogram Interrogate patient's device We will give 1 dose of IV Lasix 80mg Continue home cardiac medications Eliquis, statin, metoprolol tartrate, Entrestor and sotalol Monitor I/Os daily weights Monitor renal function and electrolytes Further recommendations based on clinical course Nurse Practitioner note has been reviewed, I agree with a documented findings and plan of care. Patient was seen and examined. Past Medical History Past Medical History: Atrial Fibrillation, Asthma, GERD/Reflux, Hyperlipidemia, Hypertension, Thyroid Disorder Additional Past Medical History / Comment(s): STATES SEASONAL ALLERGIES, History of Any Multi-Drug Resistant Organisms: None Reported Past Surgical History: Heart Catheterization, Tubal Ligation Additional Past Surgical History / Comment(s): OMAR CATARACTS, ABD SX TO REMOVE TUMOR FROM UTERUS Past Anesthesia/Blood Transfusion Reactions: Postoperative Nausea & Vomiting (PONV) Past Psychological History: No Psychological Hx Reported Smoking Status: Former smoker Past Alcohol Use History: None Reported Past Drug Use History: None Reported - Past Family History Mother Family Medical History: Renal Disease Father Family Medical History: No Reported History Additional Family Medical History / Comment(s): of "old age", in his 80's. No known history Medications and Allergies Home Medications Medication Instructions Recorded Confirmed Type Glucosamine-Chondr 500-400Mg 3 tab PO DAILY 07/08/13 12/20/20 History Tiotropium [place] [Spiriva] 1 cap INHALATION RT-DAILY 07/08/13 12/20/20 History Budesonide/Formoterol Fumarate 2 puff INHALATION RT-BID 01/03/15 12/20/20 History [Symbicort 80-4.5 Mcg Inhaler] Selenium 200 mcg PO DAILY 01/03/15 12/20/20 History Chromium 250mcg 250 mcg PO BID 01/25/17 12/20/20 History Cyanocobalamin (Vitamin B-12) 5,000 mcg PO DAILY 01/25/17 12/20/20 History [Vitamin B-12] Fenofibrate Nanocrystallized 145 mg PO HS 01/25/17 12/20/20 History [Tricor] guaiFENesin [Mucinex] 600 mg PO BID 01/25/17 12/20/20 History Apixaban [Eliquis] 5 mg PO BID #60 tab 01/27/17 12/20/20 Rx Bumetanide [BUMEX] 1 mg PO BID 12/28/17 12/20/20 History Ascorbic Acid [Vitamin C] 500 mg PO BID 09/29/19 12/20/20 History Aspirin EC [Ecotrin Low Dose] 81 mg PO DAILY 09/29/19 12/20/20 History Cod Liver Oil 1 cap PO TID 09/29/19 12/20/20 History EPINEPHrine (Auto Inject) [Epipen] 0.3 mg IM ONCE PRN 09/29/19 12/20/20 History Fluticasone Nasal [place] [Flonase 1 spr EA NOSTRIL DAILY PRN 09/29/19 12/20/20 History Nasal [place]] Levocetirizine Dihydrochloride 5 mg PO DAILY 09/29/19 12/20/20 History [Xyzal] Metoprolol Tartrate [Lopressor] 50 mg PO BID 09/29/19 12/20/20 History Pantoprazole Sodium [Protonix] 40 mg PO BID 09/29/19 12/20/20 History Sotalol [Betapace] 80 mg PO BID 09/29/19 12/20/20 History Thyroid,Pork [[place] Thyroid] 60 mg PO DAILY 09/29/19 12/20/20 History Azelastine HCl [Astepro] 1 spray EA NOSTRIL BID PRN 12/20/20 12/20/20 History Beclomethasone Dip 80 Mcg/Puff 2 puff INHALATION RT-BID 12/20/20 12/20/20 History [Qvar 80 mcg] Cholecalciferol (Vitamin D3) 125 mcg PO DAILY 12/20/20 12/20/20 History [Vitamin D3 (125 MCG = 5,000 IU)] Multivitamins, Thera [Multivitamin 1 tab PO DAILY 12/20/20 12/20/20 History (formulary)] Sacubitril/Valsartan [Entresto 49 1 tab PO BID 12/20/20 12/20/20 History mg-51 mg Tablet] Allergies Allergy/AdvReac Type Severity Reaction Status Date / Time quinine [From Qualaquin] Allergy Unknown Unknown Verified 12/20/20 08:45 amoxicillin Allergy Unknown Verified 12/20/20 08:45 cefazolin [From Kefzol] Allergy Unknown Verified 12/20/20 08:45 ciprofloxacin Allergy Rash/Hives Verified 12/20/20 08:45 clindamycin Allergy Unknown Verified 12/20/20 08:45 Iodinated Contrast Media Allergy Unknown Verified 12/20/20 08:45 latex Allergy Unknown Verified 12/20/20 08:45 Penicillins Allergy Unknown Verified 12/20/20 08:45 [id number]-Eqt Reductase Allergy Unknown Verified 12/20/20 08:45 Inhibitor zinc Allergy Anaphylaxis Verified 12/20/20 08:45 Physical Exam Vitals: Vital Signs Temp Pulse Pulse Resp BP Pulse Ox 12/20/20 09:33 93 18 106/51 97 12/20/20 07:34 110 H 18 108/69 98 12/20/20 06:23 106 H 18 95/59 94 L 12/20/20 05:12 101 H 12/20/20 05:00 97.6 F 112 H 18 94/61 100 Intake and Output 12/19/20 12/20/20 12/20/20 22:59 06:59 14:59 Other: Weight 88.451 kg Results 12/20/20 05:30 12/20/20 05:30 Cardiac Enzymes 12/20/20 12/20/20 Range/Units 05:30 05:30 AST 27 (14-36) U/L Troponin I 0.017 (0.000-0.034) ng/mL Coagulation 12/20/20 Range/Units 05:30 PT 10.8 (9.0-12.0) sec APTT 23.3 (22.0-30.0) sec CBC 12/20/20 Range/Units 05:30 WBC 8.1 (3.8-10.6) k/uL RBC 4.38 (3.80-5.40) m/uL Hgb 13.4 (11.4-16.0) gm/dL Hct 42.1 (34.0-46.0) % Plt Count 259 (150-450) k/uL Comprehensive Metabolic Panel 12/20/20 Range/Units 05:30 Sodium 136 L (137-145) mmol/L Potassium 3.4 L (3.5-5.1) mmol/L Chloride 106 (98-107) mmol/L Carbon Dioxide 20 L (22-30) mmol/L BUN 25 H (7-17) mg/dL Creatinine 0.77 (0.52-1.04) mg/dL Glucose 129 H (74-99) mg/dL Calcium 9.8 (8.4-10.2) mg/dL AST 27 (14-36) U/L ALT 25 (4-34) U/L Alkaline Phosphatase 46 (38-126) U/L Total Protein 6.1 L (6.3-8.2) g/dL Albumin 3.5 (3.5-5.0) g/dL Current Medications Generic Name Dose Route Start Last Admin Trade Name Freq PRN Reason Stop Dose Admin Apixaban 5 mg 12/20/20 21:00 Apixaban 5 Mg Tab PO BID LINNEA Protocol Bumetanide 1 mg 12/20/20 17:00 Bumetanide 1 Mg Tab PO BID@0900,1700 [facility] Sodium Chloride 1,000 mls @ 20 mls/hr 12/20/20 06:30 12/20/20 06:35 Saline 0.9% IV 20 mls/hr .Q24H LINNEA Administration Metoprolol Tartrate 50 mg 12/20/20 09:15 Metoprolol Tartrate 50 Mg Tab PO BID LINNEA Nitroglycerin 0.4 mg 12/20/20 06:25 Nitroglycerin Sl Tabs 0.4 Mg Tab SUBLINGUAL Q5M PRN Chest Pain Sacubitril/Valsartan 1 each 12/20/20 09:15 Sacubitril/Valsartan 49 Mg-51 Mg Tablet PO BID [facility] Sotalol HCl 80 mg 12/20/20 09:15 Sotalol 80 Mg Tab PO BID [facility] Intake and Output 12/19/20 12/20/20 12/20/20 22:59 06:59 14:59 Other: Weight 88.451 kg 12/20/20 05:30 12/20/20 05:30
[2020-12-20] MEDS ORDERED: Potassium Replacement Protocol 1 EACH MISC MISCELLANE PRN (11:06)
[2020-12-20] MEDS: METOPROLOL TARTRATE 50 MG TAB PO SCH ×2 (11:33→20:58)
[2020-12-20] MEDS: SACUBITRIL/VALSARTAN 49 MG-51 MG TABLET PO SCH ×3 (11:33→20:59)
[2020-12-20] MEDS: SOTALOL 80 MG TAB PO SCH ×2 (11:34→20:59)
--- NOTE | 2020-12-20 11:48 | ECHOF ---
Referral Reason:LV function MEASUREMENTS -------- HEIGHT: 152.4 cm WEIGHT: 88.5 kg BP: IVSd: 1.3 cm (0.6 - 1.1) LVIDd: 4.2 cm (3.9 - 5.3) LVPWd: 1.3 cm (0.6 - 1.1) IVSs: 1.6 cm LVIDs: 3.4 cm LVPWs: 1.3 cm LA Diam: 3.7 cm (2.7 - 3.8) Ao Diam: 2.9 cm (2.0 - 3.7) AV Cusp: 1.5 cm (1.5 - 2.6) MV EXCURSION: 15.228 mm (> 18.000) MV EF SLOPE: 80 mm/s (70 - 150) EPSS: 1.1 cm RAP: 5.00 mmHg RVSP: 34.77 mmHg FINDINGS -------- Atrial fibrillation. Pacerwire seen in RV and RA. This was a technically adequate study. The left ventricular size is normal. There is mild concentric left ventricular hypertrophy. There is severe global hypokinesis of LV . Overall left ventricular systolic function is moderate-severe ly impaired with, an EF between 30 - 35 %. The right ventricle is normal in size. The left atrial size is normal. The right atrial size is normal. There is mild aortic valve sclerosis. There is mild aortic regurgitation. Mild mitral annular calcification present. Mild mitral regurgitation is present. The tricuspid valve appears structurally normal. Mild tricuspid regurgitation present. Right vent ricular systolic pressure is normal at < 35 mmHg. The right ventricular systolic pressure, as measu red by Doppler, is 34.77mmHg. There is no pulmonic regurgitation present. The aortic root size is normal. There is no pericardial effusion. CONCLUSIONS -------- 1. Atrial fibrillation. 2. Pacerwire seen in RV and RA. 3. There is mild concentric left ventricular hypertrophy. 4. There is severe global hypokinesis of LV . 5. Overall left ventricular systolic function is moderate-severely impaired with, an EF between 30 - 35 %. 6. The left atrial size is normal. 7. There is mild aortic valve sclerosis. 8. There is mild aortic regurgitation. 9. Mild mitral annular calcification present. 10. Mild mitral regurgitation is present. 11. Mild tricuspid regurgitation present. 12. There is no pericardial effusion. VISUAL MERCHANDISING ASSOCIATE: Lala Swan RDCS
[2020-12-20] MEDS: BUMETANIDE 1 MG TAB PO SCH (17:48)
[2020-12-20] MEDS: POTASSIUM CHLORIDE ER 20 MEQ TAB.ER PO SCH (17:48)
[2020-12-20] MEDS ORDERED: AZELASTINE 137MCG/SPRAY EA NOSTRIL PRN (18:58)
[2020-12-20] MEDS ORDERED: FLUTICASONE 50MCG/SPRAY NASAL 16GM EA NOSTRIL PRN (18:58)
--- NOTE | 2020-12-20 19:17 | P.HPIM ---
History of Present Illness H&P Date: 12/20/20 Chief Complaint: Chest discomfort 80-year-old female with significant past medical history of paroxysmal atrial fibrillation, nonischemic cardiomyopathy, sinus syndrome status post AICD bi-ventricle placement, hypertension, hyperlipidemia, asthma, GERD/reflux, hypot hyroidism, and several additional comorbidities. Patient had episode last night, during the night she awoken from her sleep with episode of palpitations, HEENT a burning sensation across her chest, nausea and one episode of emesis. She stated she was extremely fatigued with mild burning across her chest, contacted EMS, per EMS run sheet patient found to be in atrial fibrillation with a rapid ventricular rate in 130s 140s, patient was given nitroglycerin again with chest discomfort relieved. Patient had extensive diagnostic workup in the emergency department revealing episodes of atrial fibrillation, with predominantly consistent paced rhythm; CBC unremarkable, CMP sodium 136, potassium 3.4, BUN 25 creatinine 0.7, magnesium 2.1, troponin mildly elevated 0.017, 0.028, 0.038. Patient was admitted with chest pain rule out ACS pathway, paroxysmal Atrial fibrillation with rapid ventricular response, and mild lower extremity edema. Consultation with cardiology for recommendations. 12/20/2020 Patient seen and examined at bedside. Patient resting comfortably with no acute signs of distress. Patient denies any complaints at this time. Review of diagnostic labs. Mildly elevated troponins possibly secondary to paroxysmal atrial fibrillation with RVR. Awaiting on reading of echocardiogram, and interrogation ient in no acute signs of distress at this time Review of Systems Constitutional: Reports as per HPI Ears, nose, mouth and throat: Reports as per HPI Breasts: Reports as per HPI Cardiovascular: Reports as per HPI Respiratory: Reports as per HPI Gastrointestinal: Reports as per HPI Genitourinary: Reports as per HPI Menstruation: Reports as per HPI Musculoskeletal: Reports as per HPI Integumentary: Reports as per HPI Neurological: Reports as per HPI Psychiatric: Reports as per HPI Endocrine: Reports as per HPI Hematologic/Lymphatic: Reports as per HPI Allergic/Immunologic: Reports as per HPI Past Medical History Past Medical History: Atrial Fibrillation, Asthma, GERD/Reflux, Hyperlipidemia, Hypertension, Thyroid Disorder Additional Past Medical History / Comment(s): STATES SEASONAL ALLERGIES, History of Any Multi-Drug Resistant Organisms: None Reported Past Surgical History: Heart Catheterization, Tubal Ligation Additional Past Surgical History / Comment(s): OMAR CATARACTS, ABD SX TO REMOVE TUMOR FROM UTERUS Past Anesthesia/Blood Transfusion Reactions: Postoperative Nausea & Vomiting (PONV) Past Psychological History: No Psychological Hx Reported Smoking Status: Former smoker Past Alcohol Use History: None Reported Past Drug Use History: None Reported - Past Family History Mother Family Medical History: Renal Disease Father Family Medical History: No Reported History Additional Family Medical History / Comment(s): of "old age", in his 80's. No known history Medications and Allergies Home Medications and Allergies Comment(s): Medications and ALLERGIES reviewed Home Medications Medication Instructions Recorded Confirmed Type Glucosamine-Chondr 500-400Mg 3 tab PO DAILY 07/08/13 12/20/20 History Tiotropium [place] [Spiriva] 1 cap INHALATION RT-DAILY 07/08/13 12/20/20 History Budesonide/Formoterol Fumarate 2 puff INHALATION RT-BID 01/03/15 12/20/20 History [Symbicort 80-4.5 Mcg Inhaler] Selenium 200 mcg PO DAILY 01/03/15 12/20/20 History Chromium 250mcg 250 mcg PO BID 01/25/17 12/20/20 History Cyanocobalamin (Vitamin B-12) 5,000 mcg PO DAILY 01/25/17 12/20/20 History [Vitamin B-12] Fenofibrate Nanocrystallized 145 mg PO HS 01/25/17 12/20/20 History [Tricor] guaiFENesin [Mucinex] 600 mg PO BID 01/25/17 12/20/20 History Apixaban [Eliquis] 5 mg PO BID #60 tab 01/27/17 12/20/20 Rx Bumetanide [BUMEX] 1 mg PO BID 12/28/17 12/20/20 History Ascorbic Acid [Vitamin C] 500 mg PO BID 09/29/19 12/20/20 History Aspirin EC [Ecotrin Low Dose] 81 mg PO DAILY 09/29/19 12/20/20 History Cod Liver Oil 1 cap PO TID 09/29/19 12/20/20 History EPINEPHrine (Auto Inject) [Epipen] 0.3 mg IM ONCE PRN 09/29/19 12/20/20 History Fluticasone Nasal [place] [Flonase 1 spr EA NOSTRIL DAILY PRN 09/29/19 12/20/20 History Nasal [place]] Levocetirizine Dihydrochloride 5 mg PO DAILY 09/29/19 12/20/20 History [Xyzal] Metoprolol Tartrate [Lopressor] 50 mg PO BID 09/29/19 12/20/20 History Pantoprazole Sodium [Protonix] 40 mg PO BID 09/29/19 12/20/20 History Sotalol [Betapace] 80 mg PO BID 09/29/19 12/20/20 History Thyroid,Pork [Blythe Thyroid] 60 mg PO DAILY 09/29/19 12/20/20 History Azelastine HCl [Astepro] 1 spray EA NOSTRIL BID PRN 12/20/20 12/20/20 History Beclomethasone Dip 80 Mcg/Puff 2 puff INHALATION RT-BID 12/20/20 12/20/20 History [Qvar 80 mcg] Cholecalciferol (Vitamin D3) 125 mcg PO DAILY 12/20/20 12/20/20 History [Vitamin D3 (125 MCG = 5,000 IU)] Multivitamins, Thera [Multivitamin 1 tab PO DAILY 12/20/20 12/20/20 History (formulary)] Sacubitril/Valsartan [Entresto 49 1 tab PO BID 12/20/20 12/20/20 History mg-51 mg Tablet] Allergies Allergy/AdvReac Type Severity Reaction Status Date / Time quinine [From Qualaquin] Allergy Unknown Unknown Verified 12/20/20 08:45 amoxicillin Allergy Unknown Verified 12/20/20 08:45 cefazolin [From Kefzol] Allergy Unknown Verified 12/20/20 08:45 ciprofloxacin Allergy Rash/Hives Verified 12/20/20 08:45 clindamycin Allergy Unknown Verified 12/20/20 08:45 Iodinated Contrast Media Allergy Unknown Verified 12/20/20 08:45 latex Allergy Unknown Verified 12/20/20 08:45 Penicillins Allergy Unknown Verified 12/20/20 08:45 [id number] Reductase Allergy Unknown Verified 12/20/20 08:45 Inhibitor zinc Allergy Anaphylaxis Verified 12/20/20 08:45 Physical Exam Vitals: Vital Signs Temp Pulse Pulse Resp BP Pulse Ox 12/20/20 17:51 98.0 F 62 18 119/56 98 12/20/20 17:00 62 12/20/20 16:00 63 18 107/74 98 12/20/20 13:41 18 12/20/20 09:33 93 18 106/51 97 12/20/20 07:34 110 H 18 108/69 98 12/20/20 06:23 106 H 18 95/59 94 L 12/20/20 05:12 101 H 12/20/20 05:00 97.6 F 112 H 18 94/61 100 Intake and Output 12/20/20 12/20/20 12/20/20 06:59 14:59 22:59 Other: Weight 88.451 kg - Constitutional General appearance: cooperative, obese - EENT Eyes: EOMI, PERRLA, normal appearance ENT: normal oropharynx Ears: bilateral: normal - Neck Neck: normal ROM Carotids: bilateral: upstroke normal Thyroid: bilateral: normal size - Respiratory Respiratory: bilateral: diminished (Anterior and posterior lung healy) - Cardiovascular tracings paroxysmal atrial fibrillation Twelve-lead EKG ventricular paced Heart rate: 64 Rhythm: regular Heart sounds: normal: S1, S2 Abnormal Heart Sounds: systolic murmur ankle Peripheral Edema: bilateral: 1+ foot Peripheral Edema: bilateral: 1+ radial pulse Peripheral Pulses: bilateral: Normal dorsalis pedis Peripheral Pulses: bilateral: Normal - Gastrointestinal General gastrointestinal: normal bowel sounds, soft - Integumentary Integumentary: normal turgor - Neurologic Neurologic: CNII-XII intact - Musculoskeletal Musculoskeletal: gait normal - Psychiatric Psychiatric: A&O x's 3, appropriate affect, intact judgment & insight Results CBC & Chem 7: 12/20/20 05:30 12/20/20 05:30 Labs: Abnormal Lab Results - Last 24 Hours (Table) 12/20/20 12/20/20 Range/Units 05:30 12:58 Sodium 136 L (137-145) mmol/L Potassium 3.4 L (3.5-5.1) mmol/L Carbon Dioxide 20 L (22-30) mmol/L BUN 25 H (7-17) mg/dL Glucose 129 H (74-99) mg/dL Phosphorus 2.3 L (2.5-4.5) mg/dL Troponin I 0.038 H* (0.000-0.034) ng/mL Total Protein 6.1 L (6.3-8.2) g/dL Comments: Echocardiogram reviewed Thrombosis Risk Factor Assmnt - Choose All That Apply Each Factor Represents 1 point: Obesity (BMI >25), Swollen legs (current) Each Risk Factor Represents 3 Points: Age 75 years or older Thrombosis Risk Factor Assessment Total Risk Factor Score: 5 Thrombosis Risk Factor Assessment Level: High Risk Assessment and Plan Assessment: Chest discomfort rule out ACS Paroxysmal atrial fibrillation on anticoagulation therapy Mild lower extremity edema paroxysmal atrial fibrillation nonischemic cardiomyopathy sinus syndrome status post AICD bi-ventricle placement hypertension hyperlipidemia asthma GERD/reflux hypothyroidism Obesity with a BMI of 38.1 Full code Plan: Chest pain rule out ACS, continue trend troponins, consultation with cardiology for recommendations Obtain echocardiogram Paroxysmal atrial fibrillation with RVR, interrogation of pacemaker, AICD Mild hypokalemia potassium replacement Lower extremity edema continue diuresis Continue home medications Continue monitor vital signs and diagnostic testing Continue medical management Further recommendations to come based on patient's clinical condition Hopeful discharge once echocardiograms obtained and interrogation of pacemaker/AICD Time with Patient: Greater than 30
[2020-12-20] MEDS ORDERED: FLUTICASONE 110 MCG INHALER INHALATION SCH (20:00)
[2020-12-20] MEDS: SYMBICORT 80-4.5 MCG INHALER INHALATION SCH (20:23)
[2020-12-20 20:48] VITALS: PULSE 60
[2020-12-20] MEDS: ASCORBIC ACID 500 MG TAB PO SCH (20:58)
[2020-12-20] MEDS: APIXABAN 5 MG TAB PO SCH (20:58)
[2020-12-20] MEDS ORDERED: CHROMIUM PO SCH (21:00)
[2020-12-20] MEDS ORDERED: FENOFIBRATE 160 MG TAB PO SCH (21:00)
[2020-12-20] MEDS: PANTOPRAZOLE 40 MG TABLET PO SCH (21:23)
[2020-12-20] MEDS ORDERED: COD LIVER OIL PO SCH (22:00)
[2020-12-21] MEDS: SODIUM CHLORIDE 0.9% 1,000 ML IV SCH (01:04)
[2020-12-21] MEDS: PANTOPRAZOLE 40 MG TABLET PO SCH (06:11)
--- NOTE | 2020-12-21 07:42 | XR ---
EXAMINATION TYPE: XR chest 2V DATE OF EXAM: 12/21/2020 COMPARISON: 01/05/2020 INDICATION: Chest pain TECHNIQUE: Frontal and lateral views of the chest are obtained. FINDINGS: The heart size is normal. The pulmonary vasculature is normal. Previous infiltrates are improving. Some mild residual remains at the right base.. Pacemaker overlie s left chest. IMPRESSION: 1. Improving right lower lobe infiltrates
[2020-12-21 08:11] LABS: African American GFR (CKD) 82 (>60 ml/min/1.73 sqM); Anion Gap 2 mmol/L; Blood Urea Nitrogen 23 mg/dL (7-17); Calcium 9.7 mg/dL (8.4-10.2); Carbon Dioxide 30 mmol/L (22-30); Chloride 108 mmol/L (98-107); Glucose 102 mg/dL (74-99); Non-African American GFR(CKD) 71 (>60 ml/min/1.73 sqM); Sodium 140 mmol/L (137-145)
[2020-12-21] MEDS: IPRATROPIUM 0.5 MG/2.5 ML NEBU INHALATION SCH ×3 (08:37→15:58)
[2020-12-21] MEDS: SYMBICORT 80-4.5 MCG INHALER INHALATION SCH (08:37)
[2020-12-21 08:49] VITALS: RESP 16; TEMP 97.8
[2020-12-21] MEDS: APIXABAN 5 MG TAB PO SCH (08:50)
[2020-12-21] MEDS: BUMETANIDE 1 MG TAB PO SCH (08:51)
[2020-12-21] MEDS: ASCORBIC ACID 500 MG TAB PO SCH (08:51)
[2020-12-21] MEDS: METOPROLOL TARTRATE 50 MG TAB PO SCH (08:51)
[2020-12-21] MEDS: SACUBITRIL/VALSARTAN 49 MG-51 MG TABLET PO SCH (08:52)
[2020-12-21] MEDS: SOTALOL 80 MG TAB PO SCH (08:55)
[2020-12-21] MEDS ORDERED: THYROID, PORK 30 MG TAB PO SCH (09:00)
[2020-12-21] MEDS ORDERED: CHOLECALCIFEROL 25 MCG (1000 IU) TABLET PO SCH (09:00)
[2020-12-21] MEDS ORDERED: MULTIVITAMINS, THERA 1 EACH TAB PO SCH (09:00)
[2020-12-21] MEDS ORDERED: ASPIRIN 325 MG TAB PO SCH (09:00)
[2020-12-21] MEDS ORDERED: NON FORMULARY DRUG (Selenium [Selenium] 100 MCG Tablet) PO SCH (09:00)
[2020-12-21] MEDS ORDERED: CYANOCOBALAMIN 500 MCG TAB PO SCH (09:00)
[2020-12-21] MEDS ORDERED: LORATADINE 10 MG TAB PO SCH (09:00)
[2020-12-21] MEDS ORDERED: GLUCOSAMINE CHONDR MSM PO SCH (09:00)
[2020-12-21] MEDS ORDERED: ASPIRIN 81 MG PO SCH (09:00)
[2020-12-21 12:31] VITALS: BP 113/75
--- NOTE | 2020-12-21 13:03 | P.PN ---
Subjective Progress Note Date: 12/21/20 HISTORY OF PRESENTING ILLNESS This is a pleasant 80-year-old female past medical history significant for p aroxysmal atrial fibrillation, nonischemic cardiomyopathy, obesity, sick sinus syndrome s/p AICD Biv placement, hypertension, patient does endorse a history of cardiac arrest when she was diagnosed with Afib and her pacemaker was placed. She follows in the office with Dr. Zavala at [facility]. We have been asked to see in consultation for chest pain. Patient is seen and examined in the emergency department. Patient states that yesterday night she took her all her medications and about 15minutes later she went to bed. She woke up with episode of palpitations, extreme tiredness/fatigue and burning sensation across her chest. She had an episode of nausea and vomiting. Her extreme tirededness continued and called EMS. When EMS arrived patient found to be in atrial fibrillation with rapid ventricular response HR 130s. She states she was given PRN Nitroglyerin. At bedside, patient feeling much better. Her symptoms have resolved. She does have lower extremity edema. She denies any chest pain, lightheadedness, dizziness, syncope or presyncope. She denies any symptoms of orthopnea or PND. She denies tobacco or alcohol use. Records obtained from patient's dial polisher Dr. Zavala office, patient did have a previous cardiac catheterization was unremarkable. She had an echocardio gram in the office 02/2020 which revealed with revealed an EF of 4549 percent, mild concentric hypertrophy of the left ventricle, mild mitral regurgitation, mild to moderate tricuspid regurgitation. No significant change from exam on 11/2018. Her last office visit she was maintaining sinus mechanism. DIAGNOSTICS EKG reveals atrial fibrillation RH 101, V pacer spikes, LVH, no signficant ST-T wave abnormalities Telemetry tracings indicate atrial fibrillation HR 95-low 100s. Laboratory reviewed, CBC unremarkable, sodium 136, potassium 3.4, BUN 25, serum, and 0.7, magnesium 2.1, troponin negative 1, proBNP 391, COVID-19 PCR negative. Current cardiac medications include Eliquis 5 mg twice a day, Bumex 1 mg twice a day, metoprolol titrate 50 mg twice a day, and chest of 49 mg/51 mg twice a day, sotalol 80 mg twice a day 12/21/2020 Patient examined this morning at the bedside. Patient denies chest pain or pressure. Denies SOB. Telemetry reveals paced rhythm. Echocardiogram reveals ejection fraction 3035%, mild aortic regurgitation. Mild mitral regurgitation. Mild tricuspid regurgitation. PHYSICAL EXAMINATION Blood pressure 106/51, heart rate 93, afebrile oxygen saturation 97% on room air CONSTITUTIONAL: No apparent distress. HEENT: Head is normocephalic. Pupils are equal, round. Sclerae anicteric. Mucous membranes of the mouth are moist. No JVD. No carotid bruit. CHEST EXAMINATION: Lungs are diminished bilaterally to auscultation. No chest wall tenderness is noted on palpation or with deep breathing. HEART EXAMINATION: Regular rate and rhythm. S1, S2 heard. Systolic murmur left sternal border, No gallops or rub. ABDOMEN: Soft, nontender. Positive bowel sounds. EXTREMITIES: 2+ peripheral pulses, moderate bilateral lower extremity edema and no calf tenderness. NEUROLOGIC EXAMINATION: Patient is awake, alert and oriented x3. ASSESSMENT Paroxysmal atrial fibrillation with rapid ventricular response [id number] score 5, on eliquis Palpitations Nonischemic cardiomyopathy Sick sinus syndrome s/p AICD Biv placement History of cardiac arrest Hypertension Obesity History of hypertension History of dyslipidemia PLAN Continue current cardiac medications Patient is stable for discharge home today She is to follow up with her primary dial polisher outpatient Nurse Practitioner note has been reviewed, I agree with a documented findings and plan of care. Patient was seen and examined. Objective - Vital Signs Vital signs: Vital Signs Temp 97.8 F 12/21/20 08:00 Pulse 60 12/21/20 12:00 Resp 16 12/21/20 12:00 BP 113/75 12/21/20 12:00 Pulse Ox 97 12/21/20 12:00 Intake & Output 12/20/20 12/21/20 12/21/20 18:59 06:59 18:59 Intake Total 240 420 Output Total 1050 Balance -810 420 Weight 91.9 kg Intake: Oral 240 420 Output: Urine 1050 Other: Voiding Method Toilet # Voids 1 - Labs CBC & Chem 7: 12/20/20 05:30 12/21/20 07:08 Labs: Abnormal Lab Results - Last 24 Hours (Table) 12/20/20 12/21/20 Range/Units 12:58 07:08 Chloride 108 H (98-107) mmol/L BUN 23 H (7-17) mg/dL Glucose 102 H (74-99) mg/dL Troponin I 0.038 H* (0.000-0.034) ng/mL
[2020-12-21 16:32] LABS: Chol/HDL Ratio 3.36 Ratio; LDL Cholesterol,Calculated 94.7 mg/dL (0.0-131.0); VLDL Calculation 15.56 mg/dL (5.00-40.00)
== END 2020-12-21 16:58 | disposition home or self-care (01) ==
LOC: EC 04:58 → 1SOBS 06:25 → 6NMEDSUR 16:15 → 3SCARD 16:35
PROVIDERS: ADMIT Family Medicine; ATTEND Family Medicine
DX: R07.89 Other chest pain (principal); I48.0 Paroxysmal atrial fibrillation; R60.0 Localized edema; I42.8 Other cardiomyopathies; I49.5 Sick sinus syndrome; I10 Essential (primary) hypertension; Z20.822 Contact with and (suspected) exposure to COVID-19; E03.9 Hypothyroidism, unspecified; E78.5 Hyperlipidemia, unspecified; E87.6 Hypokalemia; K21.9 Gastro-esophageal reflux disease without esophagitis; I44.7 Left bundle-branch block, unspecified; R91.8 Other nonspecific abnormal finding of lung field; J45.909 Unspecified asthma, uncomplicated; E66.9 Obesity, unspecified; Z68.38 Body mass index [BMI] 38.0-38.9, adult; Z79.51 Long term (current) use of inhaled steroids; Z79.82 Long term (current) use of aspirin; Z79.899 Other long term (current) drug therapy; Z79.01 Long term (current) use of anticoagulants; Z88.0 Allergy status to penicillin; Z88.1 Allergy status to other antibiotic agents; Z88.8 Allergy status to other drugs, medicaments and biological substances; Z91.040 Latex allergy status; Z91.048 Other nonmedicinal substance allergy status; Z95.810 Presence of automatic (implantable) cardiac defibrillator; Z87.42 Personal history of other diseases of the female genital tract; Z86.74 Personal history of sudden cardiac arrest; Z87.891 Personal history of nicotine dependence; Z98.41 Cataract extraction status, right eye; Z98.42 Cataract extraction status, left eye; Z96.1 Presence of intraocular lens
CPT/HCPCS: 99285; 96361; 96374; 96375; 36415; 94640 ×3; 93005; 93306; 83880; 80061; 80053; 80048; 83605; 83735; 84100; 84484; 85025; 85610; 85730; 87635; 71046; G0378 ×3; J1940; C9113

== ENCOUNTER → 2021-02-07 | Outpatient (CLI) | payer MEDICARE ==
--- NOTE | 2021-02-07 16:16 | BD ---
EXAMINATION TYPE: Axial Bone Density DATE OF EXAM: 02/07/2021 COMPARISON: NONE CLINICAL HISTORY: Height: 60 Weight: 205.4 FRAX RISK QUESTIONS: Alcohol (3 or more units per day): no Family History (Parent hip fracture): no Glucocorticoids (More than 3mos): yes (Ex: prednisone, prednisolone, methylprednisolone, dexamethasone, and hydrocortisone). History of Fracture in Adulthood: no Secondary Osteoporosis: 1. Type 1 Diabetes: no 2. Hyperthyroidism: no 3. Menopause before 45: no 4. Malnutrition: no 5. Chronic liver disease: no Rheumatoid Arthritis: no Current Tobacco Use: no RISK FACTORS HISTORY OF: Surgery to Spine/Hip(right/left)/Wrist (right/left): no Family History of Osteoporosis: no Active: yes Diet low in dairy products/other sources of calcium: no Postmenopausal woman: yes Lost more than 2 inches in height since high school: yes MEDICATIONS: diuretic, see pacs Prednisone or other steroids: yes/ inhalers How Long: Thyroid Medications: thyroid How Lon years Additional History: EXAM MEASUREMENTS: Bone mineral densitometry was performed using the Basic6 System. Bone mineral density as measured about the Lumbar spine is: ----- L1-L4(G/cm2): 1.204 T Score Values are as follows: ----- L2: 0.6 ----- L3: 0.2 ----- L4: -0.2 ----- L1-L4: 0.2 Bone mineral density has: decreased -6.7 % since study of: 12.15.2017 Bone mineral density about the R hip (g/cm2): 0.743 Bone mineral density about the L hip (g/cm2): 0.708 T Score values are as follows: -----R Neck: -2.1 -----L Neck: -2.4 -----R Total: -1.3 -----L Total: -1.5 Bone mineral density has: decreased -10.6 % since study of: 12.15.2017 IMPRESSION: Osteopenia (T Score between -2.5 and -1). There is slightly increased risk of fracture and the patient may be considered for treatment. Re-Screen 2-5 years. NOTE: T-SCORE=SD OF THE YOUNG ADULT MEAN.
== END | disposition home or self-care (01) ==
LOC: RADBDWWP 12:31
PROVIDERS: ATTEND Family Medicine
DX: M85.89 Other specified disorders of bone density and structure, multiple sites (principal); Z78.0 Asymptomatic menopausal state
CPT/HCPCS: 77080

== ENCOUNTER → 2021-03-01 | Outpatient (CLI) | payer MEDICARE | END | disposition home or self-care (01) | LOC: LABWHC1 11:51 | PROVIDERS: ATTEND Family Medicine | DX: Z20.822 Contact with and (suspected) exposure to COVID-19 (principal); J00 Acute nasopharyngitis [common cold] | CPT/HCPCS: 87502; U0003; C9803; U0005 ==

== ENCOUNTER 2021-07-13 11:56 | Emergency (ER) | payer MEDICARE ==
[2021-07-13 12:06] VITALS: PULSE 60; TEMP 98.2
--- NOTE | 2021-07-13 12:31 | ED ---
General Adult HPI - General Chief complaint: Upper Respiratory Infection Stated complaint: Cough, chest pain Time Seen by Provider: 07/13/21 12:10 Source: patient, RN notes reviewed, old records reviewed Mode of arrival: wheelchair Limitations: no limitations - History of Present Illness Initial comments: This is a 80-year-old female presents emergency department stating that she has had a cough and positive sputum production for a week. Patient states it does not seem to be getting any better and she is a little bit short of breath with exertion now. Patient states she also has some sharp chest pain particularly when she is coughing but not at rest. Patient states currently while sitting she is not coughing she has no chest pain. Patient denies any recent fever chills. Patient states she did not get COVID vaccine. Patient denies any abd ominal pain. Patient denies any nausea vomiting diarrhea. Patient denies being lightheaded or dizzy. - Related Data Home Medications Medication Instructions Recorded Confirmed Glucosamine-Chondr 500-400Mg 3 tab PO DAILY 07/08/13 12/20/20 Tiotropium [place] [Spiriva] 1 cap INHALATION RT-DAILY 07/08/13 12/20/20 Budesonide/Formoterol Fumarate 2 puff INHALATION RT-BID 01/03/15 12/20/20 [Symbicort 80-4.5 Mcg Inhaler] Selenium 200 mcg PO DAILY 01/03/15 12/20/20 Chromium 250mcg 250 mcg PO BID 01/25/17 12/20/20 Cyanocobalamin (Vitamin B-12) 5,000 mcg PO DAILY 01/25/17 12/20/20 [Vitamin B-12] Fenofibrate Nanocrystallized 145 mg PO HS 01/25/17 12/20/20 [Tricor] guaiFENesin [Mucinex] 600 mg PO BID 01/25/17 12/20/20 Bumetanide [BUMEX] 1 mg PO BID 12/28/17 12/20/20 Ascorbic Acid [Vitamin C] 500 mg PO BID 09/29/19 12/20/20 Aspirin EC [Ecotrin Low Dose] 81 mg PO DAILY 09/29/19 12/20/20 Cod Liver Oil 1 cap PO TID 09/29/19 12/20/20 EPINEPHrine (Auto Inject) [Epipen] 0.3 mg IM ONCE PRN 09/29/19 12/20/20 Fluticasone Nasal [place] [Flonase 1 spr EA NOSTRIL DAILY PRN 09/29/19 12/20/20 Nasal [place]] Levocetirizine Dihydrochloride 5 mg PO DAILY 09/29/19 12/20/20 [Xyzal] Metoprolol Tartrate [Lopressor] 50 mg PO BID 09/29/19 12/20/20 Pantoprazole Sodium [Protonix] 40 mg PO BID 09/29/19 12/20/20 Sotalol [Betapace] 80 mg PO BID 09/29/19 12/20/20 Thyroid,Pork [[place] Thyroid] 60 mg PO DAILY 09/29/19 12/20/20 Azelastine HCl [Astepro] 1 spray EA NOSTRIL BID PRN 12/20/20 12/20/20 Beclomethasone Dip 80 Mcg/Puff 2 puff INHALATION RT-BID 12/20/20 12/20/20 [Qvar 80 mcg] Cholecalciferol (Vitamin D3) 125 mcg PO DAILY 12/20/20 12/20/20 [Vitamin D3 (125 MCG = 5,000 IU)] Multivitamins, Thera [Multivitamin 1 tab PO DAILY 12/20/20 12/20/20 (formulary)] Sacubitril/Valsartan [Entresto 49 1 tab PO BID 12/20/20 12/20/20 mg-51 mg Tablet] Previous Rx's Medication Instructions Recorded Apixaban [Eliquis] 5 mg PO BID #60 tab 01/27/17 Azithromycin [Zithromax Tri-Mikal] 500 mg PO DAILY #3 tab 07/13/21 Allergies Allergy/AdvReac Type Severity Reaction Status Date / Time quinine [From Qualaquin] Allergy Unknown Unknown Verified 07/13/21 12:06 amoxicillin Allergy Unknown Verified 07/13/21 12:06 cefazolin [From Kefzol] Allergy Unknown Verified 07/13/21 12:06 ciprofloxacin Allergy Rash/Hives Verified 07/13/21 12:06 clindamycin Allergy Unknown Verified 07/13/21 12:06 Iodinated Contrast Media Allergy Unknown Verified 07/13/21 12:06 latex Allergy Unknown Verified 07/13/21 12:06 Penicillins Allergy Unknown Verified 07/13/21 12:06 Mekflgj-OGC-XoJ Reductase Allergy Unknown Verified 07/13/21 12:06 Inhibitor [Kmovysb-Exw-Woz Reductase Inhibitor] zinc Allergy Anaphylaxis Verified 07/13/21 12:06 Review of Systems ROS Statement: Those systems with pertinent positive or pertinent negative responses have been documented in the HPI. ROS Other: All systems not noted in ROS Statement are negative. 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 No known history General Exam - General Exam Comments Initial Comments: GENERAL: Patient is well-developed and well-nourished. Patient is nontoxic and well- hydrated and is in mild distress. ENT: Neck is soft and supple. No significant lymphadenopathy is noted. Oropharynx is clear. Moist mucous membranes. Neck has full range of motion without eliciting any pain. EYES: The sclera were anicteric and conjunctiva were pink and moist. Extraocular movements were intact and pupils were equal round and reactive to light. Eyelids were unremarkable. PULMONARY: Unlabored respirations. Good breath sounds bilaterally. Patient has crackles left base CARDIOVASCULAR: There is a regular rate and rhythm without any murmurs gallops or rubs. ABDOMEN: Soft and nontender with normal bowel sounds. SKIN: Skin is clear with no lesions or rashes and otherwise unremarkable. NEUROLOGIC: Patient is alert and oriented x3. Cranial nerves II through XII are grossly intact. Motor and sensory are also intact. Normal speech, volume and content. Symmetrical smile. MUSCULOSKELETAL: Normal extremities with adequate strength and full range of motion. LYMPHATICS: No significant lymphadenopathy is noted PSYCHIATRIC: Normal psychiatric evaluation. Limitations: no limitations Course Vital Signs 07/13/21 12:01 Temperature 98.2 F Pulse Rate 60 Respiratory 18 Rate Blood Pressure 130/54 O2 Sat by Pulse 96 Oximetry Medical Decision Making - Medical Decision Making EKG shows a paced rhythm at 61 bpm NJ interval 120 QRS 186 QT interval 518 QTC is 521 per patient's EKG shows no ST segment elevation or depression. Patient's chest x-ray shows no acute normalities. Patient stated she came in because she was just fearful that she might have pneumonia. - Lab Data Result diagrams: 07/13/21 13:00 07/13/21 13:00 Lab Results 07/13/21 07/13/21 07/13/21 Range/Units 13:00 13:00 13:00 WBC 10.0 (3.8-10.6) k/uL RBC 4.20 (3.80-5.40) m/uL Hgb 13.2 (11.4-16.0) gm/dL Hct 40.5 (34.0-46.0) % MCV 96.4 (80.0-100.0) fL MCH 31.3 (25.0-35.0) pg MCHC 32.5 (31.0-37.0) g/dL RDW 13.7 (11.5-15.5) % Plt Count 265 (150-450) k/uL MPV 7.8 Neutrophils % 70 % Lymphocytes % 19 % Monocytes % 6 % Eosinophils % 1 % Basophils % 0 % Neutrophils # 6.9 (1.3-7.7) k/uL Lymphocytes # 1.9 (1.0-4.8) k/uL Monocytes # 0.6 (0-1.0) k/uL Eosinophils # 0.1 (0-0.7) k/uL Basophils # 0.0 (0-0.2) k/uL Sodium 136 L (137-145) mmol/L Potassium 4.3 (3.5-5.1) mmol/L Chloride 102 (98-107) mmol/L Carbon Dioxide 30 (22-30) mmol/L Anion Gap 4 mmol/L BUN 19 H (7-17) mg/dL Creatinine 0.82 (0.52-1.04) mg/dL Est GFR (CKD-EPI)AfAm 77 (>60 ml/min/1.73 sqM) Est GFR (CKD-EPI)NonAf 67 (>60 ml/min/1.73 sqM) Glucose 110 H (74-99) mg/dL Plasma Lactic Acid Evans (0.7-2.0) mmol/L Calcium 9.2 (8.4-10.2) mg/dL Total Bilirubin 0.4 (0.2-1.3) mg/dL AST 32 (14-36) U/L ALT 25 (4-34) U/L Alkaline Phosphatase 48 (38-126) U/L Troponin I (0.000-0.034) ng/mL NT-Pro-B Natriuret Pep pg/mL Total Protein 6.4 (6.3-8.2) g/dL Albumin 3.8 (3.5-5.0) g/dL Coronavirus (PCR) Not Detected (Not Detectd) 07/13/21 07/13/21 07/13/21 Range/Units 13:00 13:00 13:00 WBC (3.8-10.6) k/uL RBC (3.80-5.40) m/uL Hgb (11.4-16.0) gm/dL Hct (34.0-46.0) % MCV (80.0-100.0) fL MCH (25.0-35.0) pg MCHC (31.0-37.0) g/dL RDW (11.5-15.5) % Plt Count (150-450) k/uL MPV Neutrophils % % Lymphocytes % % Monocytes % % Eosinophils % % Basophils % % Neutrophils # (1.3-7.7) k/uL Lymphocytes # (1.0-4.8) k/uL Monocytes # (0-1.0) k/uL Eosinophils # (0-0.7) k/uL Basophils # (0-0.2) k/uL Sodium (137-145) mmol/L Potassium (3.5-5.1) mmol/L Chloride (98-107) mmol/L Carbon Dioxide (22-30) mmol/L Anion Gap mmol/L BUN (7-17) mg/dL Creatinine (0.52-1.04) mg/dL Est GFR (CKD-EPI)AfAm (>60 ml/min/1.73 sqM) Est GFR (CKD-EPI)NonAf (>60 ml/min/1.73 sqM) Glucose (74-99) mg/dL Plasma Lactic Acid Evans 1.3 (0.7-2.0) mmol/L Calcium (8.4-10.2) mg/dL Total Bilirubin (0.2-1.3) mg/dL AST (14-36) U/L ALT (4-34) U/L Alkaline Phosphatase (38-126) U/L Troponin I <0.012 (0.000-0.034) ng/mL NT-Pro-B Natriuret Pep 662 pg/mL Total Protein (6.3-8.2) g/dL Albumin (3.5-5.0) g/dL Coronavirus (PCR) (Not Detectd) Disposition Clinical Impression: Acute bronchitis Disposition: HOME SELF-CARE Condition: Good Instructions (If sedation given, give patient instructions): Acute Bronchitis (ED) Prescriptions: Azithromycin [Zithromax Tri-Mikal] 500 mg PO DAILY #3 tab Is patient prescribed a controlled substance at d/c from ED?: No Referrals: Hayden Martinez MD [Primary Care Provider] - 1-2 days Time of Disposition: 13:55
[2021-07-13 13:19] LABS: Basophils % (A) 0 %; Eosinophils # (A) 0.1 k/uL (0-0.7); Eosinophils % (A) 1 %; HCT 40.5 % (34.0-46.0); HGB 13.2 gm/dL (11.4-16.0); Lymphocytes # (A) 1.9 k/uL (1.0-4.8); Lymphocytes % (A) 19 %; MCH 31.3 pg (25.0-35.0); MCHC 32.5 g/dL (31.0-37.0); MCV 96.4 fL (80.0-100.0); Mean Platelet Volume 7.8; Monocytes # (A) 0.6 k/uL (0-1.0); Monocytes % (A) 6 %; Neutrophils # (A) 6.9 k/uL (1.3-7.7); Neutrophils % (A) 70 %; Platelet Count 265 k/uL (150-450); RDW 13.7 % (11.5-15.5)
[2021-07-13 13:34] LABS: Albumin 3.8 g/dL (3.5-5.0); Calcium 9.2 mg/dL (8.4-10.2); Potassium 4.3 mmol/L (3.5-5.1); Total Bilirubin 0.4 mg/dL (0.2-1.3); Total Protein 6.4 g/dL (6.3-8.2)
--- NOTE | 2021-07-13 13:54 | XR ---
EXAMINATION TYPE: XR chest 2V DATE OF EXAM: 07/13/2021 COMPARISON: 12/21/2020 INDICATION: Difficulty breathing, cough TECHNIQUE: Frontal and lateral views of the chest are obtained. FINDINGS: The heart size is normal. The pulmonary vasculature is normal. The lungs are clear. This may correlate his left chest IMPRESSION: 1. No acute pulmonary process.
[2021-07-13 15:09] VITALS: BP 142/61; RESP 18
== END 2021-07-13 14:52 | disposition home or self-care (01) ==
LOC: EC 11:56
DX: J20.9 Acute bronchitis, unspecified (principal); K21.9 Gastro-esophageal reflux disease without esophagitis; E78.5 Hyperlipidemia, unspecified; I10 Essential (primary) hypertension; E07.9 Disorder of thyroid, unspecified; Z79.1 Long term (current) use of non-steroidal anti-inflammatories (NSAID); Z87.891 Personal history of nicotine dependence; Z20.822 Contact with and (suspected) exposure to COVID-19; Z88.0 Allergy status to penicillin; Z88.1 Allergy status to other antibiotic agents; Z88.2 Allergy status to sulfonamides; Z91.040 Latex allergy status; Z91.048 Other nonmedicinal substance allergy status; Z88.8 Allergy status to other drugs, medicaments and biological substances
CPT/HCPCS: 36415; 71046; 80053; 83605; 83880; 84484; 85025; 87635; 93005

== ENCOUNTER → 2023-07-21 | Outpatient (CLI) | payer MEDICARE ==
--- NOTE | 2023-07-22 07:44 | BD ---
EXAMINATION TYPE: Axial Bone Density DATE OF EXAM: 07/21/2023 CLINICAL HISTORY: 82 years old Female. ICD-10 CODE: Z78.0 AYSMPTOMATIC POST [place] Height: 59in approximate Weight: 173lb FRAX RISK QUESTIONS: Glucocorticoids (More than 3mos): yes (Ex: prednisone, prednisolone, methylprednisolone, dexamethasone, and hydrocortisone). Secondary Osteoporosis: RISK FACTORS HISTORY OF: MEDICATIONS: Thyroid Medications: Which medication: unknown name How Lon+ years EXAM MEASUREMENTS: Bone mineral densitometry was performed using the [employer]apt[employer] System. Bone mineral density as measured about the Lumbar spine is: ----- L1-L4(G/cm2): 1.158 T Score Values are as follows: ----- L1: -0.2 ----- L2: 0.1 ----- L3: -0.2 ----- L4: -0.4 ----- L1-L4: -0.2 Z Score Values are as follows: ----- L1: 1.3 ----- L2: 1.6 ----- L3: 1.3 ----- L4: 1.0 ----- L1-L4: 1.3 Bone mineral density has: Decreased -3.8% since study of: 02-07-21 Bone mineral density about the R hip (g/cm2): 0.785 Bone mineral density about the L hip (g/cm2): 0.716 T Score values are as follows: -----R Neck: -2.5 -----L Neck: -2.7 -----R Total: -1.8 -----L Total: -2.3 Z Score values are as follows: -----R Neck: -0.4 -----L Neck: -0.6 -----R Total: 0.2 -----L Total: -0.4 Bone mineral density has: Decreased -9.3% since study of: 02-07-21 FRAX%s: The graph provided illustrates a 27.8% chance for a major osteoporotic fx and a 11.4% chance for the hips probability for fx in 10 years time. IMPRESSION: Osteopenia (T Score between -2.5 and -1). There is slightly increased risk of fracture and the patient may be considered for treatment. Re-Screen 2-5 years. NOTE: T-SCORE=SD OF THE YOUNG ADULT MEAN.
--- NOTE | 2023-07-22 08:16 | MM ---
Reason for Exam: Screening (asymptomatic). Last mammogram was performed 2 year(s) and 8 month(s) ago. Patient History: Menarche at age 9. First Full-Term at age 21. Postmenopausal. Maternal cousin had breast cancer, age 35. Maternal cousin had breast cancer. Risk Values: Penelope 5 year model risk: 1.4%. NCI Lifetime model risk: 1.5%. Prior Study Comparison: 03/14/2017 Bilateral Screening Mammogram, [facility]. 07/28/2019 Bilateral Screening Mammogram, [facility]. 12/05/2020 Bilateral Screening Mammogram, [facility]. Tissue Density: There are scattered areas of fibroglandular density. Findings: Analyzed By CAD. No suspicious grouped calcifications. There is a 3 mm central nodule in the right breast. Spot compression view recommended. Stable benign appearing calcifications. Overall Assessment: Incomplete: need additional imaging evaluation, BI-RAD 0 Management: Diagnostic Mammogram of the right breast. . Patient should continue monthly self-breast exams. A clinical breast exam by your physician is recommended on an annual basis. This exam should not preclude additional follow-up of suspicious palpable abnormalities. Note on Penelope scores and lifetime risk: 1. A Penelope score greater than 3% is considered moderate risk. If this is the case, consider specialist referral to assess eligibility for a risk reducing agent. 2. If overall lifetime risk for the development of breast cancer is 20% or higher, the patient may qualify for future screening with alternating mammogram and breast MRI. Electronically signed and approved by: Jayden Klein M.D. Radiologis
== END | disposition home or self-care (01) ==
LOC: RADMAMWWP 14:10
PROVIDERS: ATTEND Family Medicine
DX: Z12.31 Encounter for screening mammogram for malignant neoplasm of breast (principal); M81.0 Age-related osteoporosis without current pathological fracture; Z78.0 Asymptomatic menopausal state; Z80.3 Family history of malignant neoplasm of breast
CPT/HCPCS: 77063; 77067; 77080

== ENCOUNTER → 2023-07-25 | Outpatient (CLI) | payer MEDICARE ==
--- NOTE | 2023-07-30 12:31 | MM ---
Reason for Exam: Additional evaluation requested from abnormal screening. Last screening mammogram was performed less than 1 month ago. Patient History: Menarche at age 9. First Full-Term at age 21. Postmenopausal. Maternal cousin had breast cancer, age 35. Maternal cousin had breast cancer. Risk Values: Penelope 5 year model risk: 1.4%. NCI Lifetime model risk: 1.5%. Prior Study Comparison: 07/28/2019 Bilateral Screening Mammogram, [facility]. 12/05/2020 Bilateral Screening Mammogram, [facility]. 07/21/2023 Bilateral MG 3D screening mammo w/cad, [facility]. Tissue Density: Right: The breasts are heterogeneously dense, which may obscure small masses. Findings: Analyzed By CAD. Nodular density does not persist. No evidence of mass or distortion. No suspicious microcalcifications. Overall Assessment: Benign, BI-RAD 2 Management: Screening Mammogram of both breasts in 1 year. . Results were given to the patient verbally at the time of exam. Patient should continue monthly self-breast exams. A clinical breast exam by your physician is recommended on an annual basis. This exam should not preclude additional follow-up of suspicious palpable abnormalities. Note on Penelope scores and lifetime risk: 1. A Penelope score greater than 3% is considered moderate risk. If this is the case, consider specialist referral to assess eligibility for a risk reducing agent. 2. If overall lifetime risk for the development of breast cancer is 20% or higher, the patient may qualify for future screening with alternating mammogram and breast MRI. Electronically signed and approved by: Rj Souza M.D. Radiologis
== END | disposition home or self-care (01) ==
LOC: RADMAMWWP 10:16
PROVIDERS: ATTEND Family Medicine
DX: R92.331 Mammographic heterogeneous density, right breast (principal); R92.8 Other abnormal and inconclusive findings on diagnostic imaging of breast; Z80.3 Family history of malignant neoplasm of breast; Z78.0 Asymptomatic menopausal state
CPT/HCPCS: 77061; 77065

== ENCOUNTER → 2024-09-01 | Outpatient (CLI) | payer MEDICARE ==
--- NOTE | 2024-09-01 15:50 | MM ---
Reason for Exam: Screening (asymptomatic). Last mammogram was performed 1 year(s) and 1 month(s) ago. Patient History: Menarche at age 9. First Full-Term at age 21. Postmenopausal. Maternal cousin had breast cancer, age 35. Maternal cousin had breast cancer. Risk Values: Penelope 5 year model risk: 1.3%. NCI Lifetime model risk: 1.3%. Prior Study Comparison: 12/05/2020 Bilateral Screening Mammogram, [facility]. 07/21/2023 Bilateral MG 3D screening mammo w/cad, [facility]. 07/25/2023 Right MG 3D work up w/cad RT, [facility]. Tissue Density: There are scattered areas of fibroglandular density. Findings: Analyzed By CAD. Right breast: There is no suspicious group of microcalcifications or new suspicious mass. Benign-appearing calcifications right breast. Left breast: There is no suspicious group of microcalcifications or new suspicious mass. Benign-appearing calcifications left breast. Overall Assessment: Benign, BI-RAD 2 Management: Screening Mammogram of both breasts in [address] [facility] will attempt to contact patient to return for supplemental views and ultrasound if indicated. Patient should continue monthly self-breast exams. A clinical breast exam by your physician is recommended on an annual basis. This exam should not preclude additional follow-up of suspicious palpable abnormalities. Note on Penelope scores and lifetime risk: 1. A Penelope score greater than 3% is considered moderate risk. If this is the case, consider specialist referral to assess eligibility for a risk reducing agent. 2. If overall lifetime risk for the development of breast cancer is 20% or higher, the patient may qualify for future screening with alternating mammogram and breast MRI. [facility], , 09/01/2024 3:47 PM. Electronically signed and approved by: Ismael Schaeffer DO
== END | disposition home or self-care (01) ==
LOC: RADMAMWWP 13:16
PROVIDERS: ATTEND Family Medicine
DX: Z12.31 Encounter for screening mammogram for malignant neoplasm of breast (principal); R92.323 Mammographic fibroglandular density, bilateral breasts; Z78.0 Asymptomatic menopausal state; Z80.3 Family history of malignant neoplasm of breast
CPT/HCPCS: 77063; 77067